=== PATIENT | male | born 1940 | race Caucasian/White ===

== ENCOUNTER 2018-02-22 09:23 | Inpatient (IN) | payer MEDICARE, MEDICAID ==
[~2018-02-22] VITALS: Ht 182.9 cm; Wt 67.6 kg
[~2018-02-22 09:23] MED LIST: ACET325T53 PO; AMLO5TAB7 PO; ASPI500T19 PO; ATOR20TA PO; BISA10SU8 RC; CHOL100044 PO; DICL100G16 TP; GABA-534 PO; HYDR-3026 PO; HYDR28.32 TP; HYDR2VIA3 IVP; LORA-259 PO; MAGN400O6 PO; METF-440 PO; NA P133E RC; OMEP20TA5 PO; ONDA4TAB8 PO; POLY17PO4 PO; SITA50TA PO; TAMS-12 PO
--- NOTE | 2018-02-22 09:25 | NUR ---
FLOR FROM SND WITH CC OF ALTERED MENTAL STATUS. PATIENT RECEIVED AWAKE AND ALERT X 3. NOT IN DISTRESS. SKIN IS WARM TO TOUCH, NOTED FEBRILE. 102.2 ORAL UPON CHECKING. PATIERNT IS SATING 9% ON ROOM AIR, PLACED PT ON O2 VIA NC. CONNECTED PT TO TELE MONITOR, PENDING MD WEI
--- NOTE | 2018-02-22 09:42 | NUR ---
URINE SAMPLE COLLECTED AND SENT TO LAB
[2018-02-22 09:52] LABS: APPEARANCE,URINE Clear (CLEAR); BILIRUBIN,URINE Negative (NEGATIVE); BLOOD, URINE Moderate Ery/uL (NEGATIVE); COLOR,URINE Yellow (YELLOW); KETONES,URINE Negative (NEGATIVE); LEUKOCYTE ESTERASE ,URINE Small (NEGATIVE); NITRITE, URINE Positive (NEGATIVE); PH,URINE 5.5 (5.0-8.0); PROTEIN,URINE Negative (NEGATIVE); UGLUCOSE Negative (NEGATIVE)
[2018-02-22 10:04] LABS: CALCIUM, SERUM 8.5 mg/dL (8.5-10.1); CARBON DIOXIDE 26 mmol/L (21-32); CHLORIDE 102 mmol/L (98-107); CREATININE 1.3 mg/dL (0.6-1.3); GLUCOSE 253 mg/dL (74-106); POTASSIUM 4.1 mmol/L (3.5-5.1); SODIUM SERUM 139 mmol/L (136-145); UREA NITROGEN, BLOOD 31 mg/dL (7-18)
--- NOTE | 2018-02-22 10:07 | NUR ---
PAGED DR. BHANDARI FOR ADMISSION.
[2018-02-22 10:08] LABS: BASOPHILS % (AUTO) 0.6 % (0.0-2.0); HEMATOCRIT 43 % (39-51); HEMOGLOBIN 14.2 g/dL (13.5-17.5); INR 1.05 (0.87-1.13); LYMPHOCYTES % (AUTO) 2.6 % (20.0-44.0); MEAN CORPUSCULAR HGB CONC 33 g/dl (31.0-36.0); MEAN CORPUSCULAR VOLUME 85 fL (80-96); MONOCYTES % (AUTO) 4.8 % (2.0-12.0); PLATELET COUNT (AUTO) 167 /CMM (150-450); RDW COEFFICIENT OF VARIATION 15.6 (11.5-15.0); RED BLOOD CELL COUNT(AUTO) 5.08 MIL/uL (4.5-6.0)
[2018-02-22 10:09] LABS: BASOPHILS # (AUTO) 0.1 /CMM (0.0-0.2); LYMPHOCYTES # (AUTO) 0.5 /CMM (0.8-4.8); MONOCYTES # (AUTO) 0.9 /CMM (0.1-1.30); NEUTROPHILS # (AUTO) 17.5 /CMM (1.8-8.9); TROPONIN I < 0.017 ng/mL (0.00-0.056)
[2018-02-22 10:10] LABS: ALANINE AMINOTRANSFERASE 15 U/L (12-78); ALBUMIN 3.2 g/dL (3.4-5.0); ALKALINE PHOSPHATASE 82 U/L (46-116); ASPARTATE AMINOTRANSFERASE 20 U/L (15-37); BILIRUBIN,DIRECT 0.1 mg/dL (0.0-0.2); BILIRUBIN,TOTAL 0.5 mg/dL (0.2-1.0); TOTAL PROTEIN, SERUM 7.3 g/dL (6.4-8.2)
[2018-02-22 10:16] LABS: BACTERIA,URINE 1+ /HPF (None Seen); SQUAMOUS EPITHELIAL CELL,UR Few /HPF (None Seen)
[2018-02-22] MEDS ORDERED: CEFTRIAXONE 1GM BAG (ER ONLY) 50 ML IV ONE (11:00)
--- NOTE | 2018-02-22 11:12 | NUR ---
REPORT GIVEN TO CONI RANDLE FOR SHINE
--- NOTE | 2018-02-22 11:15 | NUR ---
ROCEPHINE ORDER DUPLICATE
--- NOTE | 2018-02-22 11:24 | NUR ---
PATIENT TRANSPORTED TO TELE. S
[2018-02-22] MEDS ORDERED: POLY15DR40 EACHEYE (11:30)
[2018-02-22] MEDS ORDERED: TRAM50TA2 PO ×2 (11:30)
[2018-02-22] MEDS ORDERED: BACL10TA PO (11:30)
[2018-02-22] MEDS ORDERED: POLY17PO4 PO (11:30)
[2018-02-22] MEDS ORDERED: PANT40TA2 PO (11:30)
[2018-02-22] MEDS ORDERED: DULO60CA45 PO (11:30)
[2018-02-22] MEDS ORDERED: FINA5TAB3 PO (11:30)
[2018-02-22] MEDS ORDERED: METH10TA2 PO (11:30)
[2018-02-22] MEDS ORDERED: PRIM50TA27 PO (11:30)
[2018-02-22] MEDS ORDERED: LINA5TAB PO (11:30)
[2018-02-22] MEDS ORDERED: OLOP2.5D EACHEYE (11:30)
[2018-02-22] MEDS ORDERED: CEFTRIAXONE 1 G in IV D5W 50 ML IV ONE (11:30)
[2018-02-22] MEDS ORDERED: ASCO500T9 PO (11:30)
[2018-02-22] MEDS ORDERED: CALA177L16 TP (11:30)
[2018-02-22] MEDS ORDERED: CETI-102 PO (11:30)
[2018-02-22] MEDS ORDERED: HYDR25SU33 RC (11:34)
[2018-02-22] MEDS ORDERED: METF500T67 PO (11:34)
[2018-02-22 11:55] VITALS: BP 104/47
--- NOTE | 2018-02-22 12:05 | NUR ---
AVIATION OPERATIONS SPECIALIST NOTE RECEIVED PATINT FROM ER WITH DX AMS UNDER CARE DOCTOR ELISABET ,ALERT WITH CONFUSION ,PLACED ON TELEMONITOR SR , LT AC HL INTACT NO S\S INFECTION NOTED , HOSPITAL,ORIENTATION DONEVS TAKEN ON RA NO SOB NOTEBODY CHECK DONE , BED IN LOWEST AND LOCKED POSITION , CALL LIGHT WITHIN REACH , WILL MDONT TO MONITOR CLOSELY
[2018-02-22 13:54] VITALS: BP 104/47
--- NOTE | 2018-02-22 14:00 | NUR ---
PEOP[employer]OFT FINANCIALS CONSULTANT OTE CALLED TO DR BHANDARI STATED , TO CONT MEDS FROM SNF .OK TO START JOSE DIET
[2018-02-22] MEDS ORDERED: cetrizine 10 MG TABLET PO PRN (15:00)
[2018-02-22] MEDS ORDERED: POLYETHYLENE GLYCOL 3350 17 GM POWD.PACK PO PRN (15:00)
[2018-02-22] MEDS ORDERED: NA PHOS,M-B/NA PHOS,DI-BA 1 EA ENEMA RC PRN (15:00)
[2018-02-22] MEDS ORDERED: CALAMINE 118 ML BOTTLE TP PRN (15:00)
[2018-02-22] MEDS ORDERED: BISACODYL SUPP (10 MG) 10 MG/SUPP.RECT SUPP.RECT RC PRN (15:00)
[2018-02-22] MEDS ORDERED: TRAMADOL HCL 50 MG TABLET PO PRN (15:00)
[2018-02-22] MEDS: ACETAMINOPHEN 325 MG TABLET PO PRN ×2 (15:10→21:26)
[2018-02-22] MEDS ORDERED: hydrOXYzine PAMOATE 25 MG CAPSULE PO PRN (15:30)
--- NOTE | 2018-02-22 15:58 | NUR ---
EXCELSIOR CUTTER NOTE SPOKE WITH DR BHANDARI AWARE THAT T 102.8 .OK TO START IVF ORDER CARRIED OUT
[2018-02-22] MEDS ORDERED: DEXTROSE 50%-WATER 50 ML DISP.SYRIN IV PRN (16:00)
[2018-02-22] MEDS: BACLOFEN (10 MG) 10 MG TABLET PO SCH (16:12)
[2018-02-22] MEDS: GABAPENTIN 400 MG CAPSULE PO SCH (16:12)
[2018-02-22] MEDS: OLOPATADINE HCL 0.1% OPHTH BOTTLE EACHEYE SCH (16:12)
[2018-02-22 16:17] VITALS: BP 101/48
[2018-02-22] MEDS: IV NS 0.9% 1,000 ML IV PRN (16:26)
[2018-02-22] MEDS: BLOOD SUGAR DIAGNOSTIC 1 EACH STRIP IN SCH ×2 (18:26→21:48)
[2018-02-22] MEDS: INSULIN ASPART/LISPRO 100 UNIT/ML CARTRIDGE SQ PRN (18:26)
--- NOTE | 2018-02-22 18:28 | NUR ---
PSYCHIC READER NOTE PER DR ELISABET METCALF TO PLACE COOLING BALKET , T NOW 101.9 ,WILL CONT TO MONITOR CLOSELY, REFUSED DINNER, ENCOURAGED X2 ,STILL REFUSED, WILL F\U
--- NOTE | 2018-02-22 19:30 | NUR ---
RN OPENING NOTES: RECEIVED PATIENT ON BED AWAKE ALERT TO NAME, CONFUSED. ON ROOM AIR NOT IN APPARENT DISTRESS. SR ON THE MONITOR. IV ACCESS INTACT ON LEFT AC IVF INFUSING ORDERED, SAFETY AND ASPIRATION PRECAUTIONS OBSERVED AT ALL TIMES. ON COOLING BLANKET TO MONITOR TEMP; RENDERED COOLING MEASURES; INFECTION PREVENTATIVE MEASURES ENSURED. CONTINUOUSLY MONITORED. BED ALARM SET.
[2018-02-22 20:00] VITALS: BP 119/59
[2018-02-22] MEDS: PRIMIDONE 50 MG TABLET PO SCH (21:26)
[2018-02-22] MEDS: POLYETHYLENE GLYCOL 3350 17 GM POWD.PACK PO SCH (21:27)
[2018-02-22] MEDS: HYDROCORTISONE ACETATE 25 MG/SUPP.RECT SUPP.RECT RC SCH (22:00)
[2018-02-23] VITALS: BP 133/50
--- NOTE | 2018-02-23 00:30 | NUR ---
RN NOTES: PATIENT;S TEMP NOW DOWN TO 98.9. TO CONTINUE TO MONITOR. TURNED OFF COOLING BALNKET, PATIENT CLAIMS HE IS " FREEZING."
[2018-02-23 04:00] VITALS: BP 125/47
[2018-02-23] MEDS: ACETAMINOPHEN 325 MG TABLET PO PRN ×3 (04:26→21:45)
[2018-02-23] MEDS: IV NS 0.9% 1,000 ML IV PRN ×2 (05:49→18:24)
--- NOTE | 2018-02-23 06:54 | NUR ---
RN CLOSING NOTES: SKIN CARE RENDERED. NOTED SPIKE OF TEMP AGAIN. WAS PLACED BACK ON COOLING BLANKET AND CONTINUED COOLING MASURES. TYLENOL APPROPRIATE. SAFETY MEASURES ENSURED. TO MONITOR FOR FEVERS. PATIENT'S TEMP NOW DOWN TO 99.8. PATIENT COMPLAINED HE IS COLD. SAFETY MEASURES ENSURED. PLACED CONDOM CATH TO COLLECT URINE. IVF ORDERED. ACCUCHECK NOTED. CONTINUOUSLY MONITORED.TO ENDORSE TO AM SHIFT RN.
--- NOTE | 2018-02-23 07:10 | NUR ---
TELE/RN INITIAL NOTES RECEIVED PT IN BED, ALERT AND VERBALLY RESPONSIVE. SR ON TELEMONITOR. NO C/O PAIN AT THIS TIME. ON COOLING BLANKET, AFEBRILE AT THIS TIME. CONDOM CATH IN PLACED. WITH ONGOING IVF NS@75ML/HR INFUSING WELL ON LAC G18. HOB ELEVATED. SAFETY MEASURES AND ASPIRATION PRECAUTION OBSERVED AT ALL TIMES. CALL LIGHT WITHIN REACH. PER PM RN ENDORSEMENT, PT HAS BEEN REFUSING MEALS SINCE YESTERDAY AND PT REFUSED ACCUCHECK FOR 729, WILL OFFER AGAIN LATER. WILL CONT TO MONITOR
--- NOTE | 2018-02-23 07:29 | NUR ---
REFUSED ACCUCHECK AT THIS TIME; TO RE OFFER; MRSA SENT PER PROTOCOL
[2018-02-23] MEDS: BLOOD SUGAR DIAGNOSTIC 1 EACH STRIP IN SCH ×4 (07:30→21:40)
--- NOTE | 2018-02-23 07:30 | NUR ---
RN NOTES OFFERED ACCUCHECK TO PT, PT STILL STRONGLY REFUSED, PT VERBALIZED, "THEY HAVEN'T CHECKED MY BLOOD SUGAR FOR 1 YEAR SO WHY DO IT NOW." EXPLAINED RISKS AND BENEFITS. STILL PT STRONGLY REFUSED OFFERED BREAKFAST, PT REFUSED. WILL RE-OFFER AGAIN LATER
[2018-02-23] MEDS: PANTOPRAZOLE 40 MG TABLET.DR PO SCH (07:52)
[2018-02-23 08:00] VITALS: BP 141/59
[2018-02-23] MEDS: CHOLECALCIFEROL 1,000 UNIT TABLET (VIT D3) PO SCH (08:50)
[2018-02-23] MEDS: METFORMIN 500 MG TABLET PO SCH (08:50)
[2018-02-23] MEDS: FINASTERIDE (5 MG) 5 MG TABLET PO SCH (08:50)
[2018-02-23] MEDS: LINAGLIPTIN 5 MG TABLET PO SCH (08:50)
[2018-02-23] MEDS: BACLOFEN (10 MG) 10 MG TABLET PO SCH ×3 (08:51→16:39)
[2018-02-23] MEDS: ASCORBIC ACID 500 MG TABLET PO SCH (08:51)
[2018-02-23] MEDS: GABAPENTIN 400 MG CAPSULE PO SCH ×3 (08:51→16:38)
[2018-02-23] MEDS: METHADONE HCL 10 MG TABLET PO SCH (08:51)
[2018-02-23] MEDS: DULOXETINE HCL 30 MG CAPSULE.DR PO SCH (08:51)
[2018-02-23] MEDS: TRAMADOL HCL 50 MG TABLET PO SCH (08:51)
[2018-02-23] MEDS: OLOPATADINE HCL 0.1% OPHTH BOTTLE EACHEYE SCH ×2 (08:54→16:39)
--- NOTE | 2018-02-23 09:00 | NUR ---
RN NOTES OFFERED BREAKFAST, PT REFUSED. PT REQUESTED FOR 2 CRANBERRY JUICE AND OFFERED UNSWEETENED APPLE SAUCE.
--- NOTE | 2018-02-23 10:45 | NUR ---
RN NOTES CALLED PHARMACY FOR ROCEPHIN IV, PER PHARMACIST, WILL DELIVER
[2018-02-23] MEDS ORDERED: Z GUARD REMEDY 2 OZ OINT TP PRN (11:30)
[2018-02-23 12:00] VITALS: BP 136/48
[2018-02-23] MEDS: SILVER SULFADIAZINE CREAM 25 GM TUBE TP SCH (12:03)
[2018-02-23] MEDS: CEFTRIAXONE 1 G in IV D5W 50 ML IV SCH (12:03)
[2018-02-23 16:00] VITALS: BP 141/56
--- NOTE | 2018-02-23 17:30 | NUR ---
RN NOTES SEEN AND EXAMINED BY DR BHANDARI. NOTIFIED MD THAT PT HAS BEEN REFUSING MEALS. NOTED PT BLADDER DISTENTION. NO URINE OUTPUT ON CONDOM CATH. MD ORDER: D/C CONDOM, CATH. BLADDER SCANN Q6HR, MAY DO IN AND OUT CATH IF >300 MLS RETENTION
[2018-02-23] MEDS: ASPIRIN 325 MG TABLET PO SCH (17:35)
--- NOTE | 2018-02-23 18:00 | NUR ---
RN NOTES BLADDER SCAN DONE; [id number] IN AND OUT CATH DONE WITH 600ML OUTPUT
--- NOTE | 2018-02-23 19:10 | NUR ---
REQUISITION APPROVER NOTES RECEIVED PT IN BED, RESTING COMFORTABLY, A/ 0 X 1, VERBALLY RESPONSIVE. NO DISTRESS, NO SOB NOTED AT THIS TIME. SR ON TELEMONITOR. NO C/O PAIN AT THIS TIME. ON COOLING BLANKET IN PLACE, TEMP : 99.7 AT THIS TIME. WITH ONGOING IVF NS@75ML/HR INFUSING WELL ON LAC G18. NO INFILTRATION NOTED. HOB ELEVATED. SAFETY MEASURES AND ASPIRATION PRECAUTION OBSERVED AT ALL TIMES. NO S/S OF HYPO/ HYPERGLYCEMIA NOTED. CALL LIGHT WITHIN REACH. WILL CONT TO MONITOR.
--- NOTE | 2018-02-23 19:11 | NUR ---
RN NOTES PT IN STABLE CONDITION, NO ACUTE CHANGES THROUGHOUT SHIFT. SAFETY MEASURES AND ASPIRATION PRECAUTION OBSERVED AT ALL TIMES. ALL NEEDS ANTICIPATED. ENDORSED TO PM SHIFT RN FOR SHINE
--- NOTE | 2018-02-23 19:13 | NUR ---
PT ON SR WITH BBB , HR : 71 ON TELE MONITOR.
[2018-02-23 19:53] LABS: ALANINE AMINOTRANSFERASE 29 U/L (12-78); ALKALINE PHOSPHATASE 80 U/L (46-116); ASPARTATE AMINOTRANSFERASE 57 U/L (15-37); BILIRUBIN,TOTAL 0.7 mg/dL (0.2-1.0); CALCIUM, SERUM 8.3 mg/dL (8.5-10.1); CARBON DIOXIDE 22 mmol/L (21-32); CHLORIDE 105 mmol/L (98-107); CREATININE 1.1 mg/dL (0.6-1.3); GLUCOSE 135 mg/dL (74-106); POTASSIUM 4.2 mmol/L (3.5-5.1); SODIUM SERUM 141 mmol/L (136-145); TOTAL PROTEIN, SERUM 7.5 g/dL (6.4-8.2); UREA NITROGEN, BLOOD 27 mg/dL (7-18)
[2018-02-23 20:00] VITALS: BP 127/55
[2018-02-23] MEDS: PRIMIDONE 50 MG TABLET PO SCH (21:39)
[2018-02-23] MEDS: HYDROCORTISONE ACETATE 25 MG/SUPP.RECT SUPP.RECT RC SCH (21:39)
[2018-02-23] MEDS: ATORVASTATIN 10 MG TABLET PO SCH (21:40)
[2018-02-23] MEDS: POLYETHYLENE GLYCOL 3350 17 GM POWD.PACK PO SCH (21:40)
[2018-02-23] MEDS: INSULIN ASPART/LISPRO 100 UNIT/ML CARTRIDGE SQ PRN (22:01)
[2018-02-23] MEDS ORDERED: INSULIN LISPRO/ASPART 100 UNIT/ML CARTRIDGE SQ ONE (22:59)
[2018-02-24] VITALS: BP 96/45
--- NOTE | 2018-02-24 01:15 | NUR ---
BLADDER SCAN DONE : 27 CC AT THIS TIME, PT WITH NO S/S OF PAIN OR DISCOMFORT AT THIS TIME, PT IS ASLEEP , APPEARS COMFORTABLE. WILL CONT TO MONITOR.
[2018-02-24 04:00] VITALS: BP 91/42
[2018-02-24 06:04] LABS: EOSINOPHILS % (AUTO) 0.1 % (0.0-6.0); HEMATOCRIT 39 % (39-51); HEMOGLOBIN 12.6 g/dL (13.5-17.5); LYMPHOCYTES # (AUTO) 0.3 /CMM (0.8-4.8); MEAN CORPUSCULAR HGB CONC 32 g/dl (31.0-36.0); MEAN CORPUSCULAR VOLUME 86 fL (80-96); MONOCYTES # (AUTO) 0.6 /CMM (0.1-1.30); MONOCYTES % (AUTO) 8.9 % (2.0-12.0); NEUTROPHILS # (AUTO) 5.4 /CMM (1.8-8.9); PLATELET COUNT (AUTO) 127 /CMM (150-450); RDW COEFFICIENT OF VARIATION 15.9 (11.5-15.0); RED BLOOD CELL COUNT(AUTO) 4.51 MIL/uL (4.5-6.0); WHITE BLOOD COUNT (AUTO) 6.3 K/uL (4.3-11.0)
--- NOTE | 2018-02-24 06:10 | NUR ---
bladder scan done: 100 cc at this time, molded goods inspector trimmer ricarda at bedside, doing am care to pt . pt denies pain or discomfort at this time.
--- NOTE | 2018-02-24 06:51 | NUR ---
ROCK DUSTER NOTES PT IN BED, AWAKE, A/ 0 X 2, VERBALLY RESPONSIVE. NO DISTRESS, NO SOB NOTED AT THIS TIME. SR 64ON TELE MONITOR. NO C/O PAIN AT THIS TIME. PT IS AFEBRILE WITH ONGOING IVF NS@75ML/HR INFUSING WELL ON LAC G18. NO INFILTRATION NOTED. HOB ELEVATED. SAFETY MEASURES AND ASPIRATION PRECAUTION OBSERVED AT ALL TIMES. NO S/S OF HYPO/ HYPERGLYCEMIA NOTED. CALL LIGHT WITHIN REACH. WILL ENDORSE TO NEXT SHIFT FOR SHINE
--- NOTE | 2018-02-24 07:10 | NUR ---
TELE/RN INITIAL NOTES RECEIVED PT IN BED, A/OX2. SR WITH BBB ON TELEMONITOR. TOLERATING ROOM AIR WELL, NO SOB NOTED. DENIES PAIN. AFEBRILE AT THIS TIME. ON COOLING BLANKET. WITH ONGOING IVF NS AT 75 ML/HR INFUSING WELL ON LAC G18. HOB ELEVATED. SAFETY MEASURES AND ASPIRATION PRECAUTION IN PLACED. CALL LIGHT WITHIN REACH. WILL CONT TO MONITOR
[2018-02-24] MEDS: BLOOD SUGAR DIAGNOSTIC 1 EACH STRIP IN SCH ×4 (07:30→21:42)
[2018-02-24] MEDS: PANTOPRAZOLE 40 MG TABLET.DR PO SCH (07:42)
[2018-02-24] MEDS: IV NS 0.9% 1,000 ML IV PRN ×2 (07:56→21:43)
[2018-02-24 08:00] VITALS: BP 105/46
[2018-02-24] MEDS: GABAPENTIN 400 MG CAPSULE PO SCH ×3 (08:20→16:07)
[2018-02-24] MEDS: DULOXETINE HCL 30 MG CAPSULE.DR PO SCH (08:21)
[2018-02-24] MEDS: BACLOFEN (10 MG) 10 MG TABLET PO SCH ×3 (08:21→16:06)
[2018-02-24] MEDS: TRAMADOL HCL 50 MG TABLET PO SCH (08:21)
[2018-02-24] MEDS: FINASTERIDE (5 MG) 5 MG TABLET PO SCH (08:21)
[2018-02-24] MEDS: METHADONE HCL 10 MG TABLET PO SCH (08:21)
[2018-02-24] MEDS: LINAGLIPTIN 5 MG TABLET PO SCH (08:21)
[2018-02-24] MEDS: CHOLECALCIFEROL 1,000 UNIT TABLET (VIT D3) PO SCH (08:21)
[2018-02-24] MEDS: ASCORBIC ACID 500 MG TABLET PO SCH (08:21)
[2018-02-24] MEDS: METFORMIN 500 MG TABLET PO SCH (08:21)
[2018-02-24] MEDS: OLOPATADINE HCL 0.1% OPHTH BOTTLE EACHEYE SCH ×2 (08:22→16:06)
[2018-02-24] MEDS: SILVER SULFADIAZINE CREAM 25 GM TUBE TP SCH (08:22)
[2018-02-24] MEDS: CEFTRIAXONE 1 G in IV D5W 50 ML IV SCH (11:54)
[2018-02-24 12:00] VITALS: BP 100/46
--- NOTE | 2018-02-24 12:00 | NUR ---
RN NOTES BLADDER SCAN ISYL=556 MLS; NOTED WET DIAPER
--- NOTE | 2018-02-24 13:30 | NUR ---
RN NOTES PT WAS SEEN AND EXAMINED BY DR BHANDARI. MD NOTIFIED RE: PT'S CONT REFUSING OF MEALS, MADE AWARE THAT PT ONLY TAKES JUICE AND APPLE SAUCE. RD FOLLOWING, RECOMMENDED ADDITIONAL MILKSHAKE ON TRAYS. MD ORDER TO D/C TYLENOL PO PRN FOR FEVER, PER MD OK TO GIVE TYLENOL FOR MILD PAIN ONLY
[2018-02-24 16:00] VITALS: BP 102/43
[2018-02-24] MEDS: ASPIRIN 325 MG TABLET PO SCH (17:30)
--- NOTE | 2018-02-24 18:00 | NUR ---
RN NOTES BLADDER SCAN= 219 MLS
--- NOTE | 2018-02-24 19:08 | NUR ---
RN NOTES PT IN STABLE CONDITION. NO ACUTE CHANGES THROUGHOUT SHIFT. SAFETY MEASURES OBSERVED AT ALL TIMES. ALL NEEDS ANTICIPATED
--- NOTE | 2018-02-24 19:40 | NUR ---
RN INITIAL NOTES: RECEIVED REPORT FROM KASSIDY NEWBERRY. PT IN BED, AWAKE, A/O X1-2, CONFUSED, ON RA, RESPIRATION EVEN AND UNLABORED. APPEARS CALM AND COMFORTABLE. NO FACIAL GRIMACE NOTED. IV ACCESS ON LEFT AC G 18 PATENT AND FLUSHING WELL, INFUSING WITH NS AT 75ML/HR. PER DAY RN REPORT, PT REFUSING TO EAT, MD AWARE ABOUT IT. LAST BLADDER SCAN PERFORMED BY DAY RN WAS AT 0600PM (1800). NEXT BLADDER SCAN WILL BE AT 0000MN. BLE OFFLOADED. SAFETY PRECAUTIONS FOR FALL INITIATED, CALL LIGHT IN REACH. WILL CONTINUE MONITORING PT.
[2018-02-24 20:00] VITALS: BP 105/46
[2018-02-24] MEDS: ATORVASTATIN 10 MG TABLET PO SCH (21:43)
[2018-02-24] MEDS: POLYETHYLENE GLYCOL 3350 17 GM POWD.PACK PO SCH (21:43)
[2018-02-24] MEDS: PRIMIDONE 50 MG TABLET PO SCH (21:43)
[2018-02-24] MEDS: HYDROCORTISONE ACETATE 25 MG/SUPP.RECT SUPP.RECT RC SCH (21:43)
[2018-02-24] MEDS: INSULIN ASPART/LISPRO 100 UNIT/ML CARTRIDGE SQ PRN (21:59)
--- NOTE | 2018-02-24 21:59 | NUR ---
BS 165: BS 165, UPON SCANNING THE MEDICATION IT SHOWS THAT MEDICATION IS NOT ON PT'S PROFILE, CHECKED AND VERIFIED WITH COVER MAKING MACHINE OPERATOREDUARD YANG, 5MEDICATION RIGHTS VERIFIED. 3UNITS OF INSULIN HUMALOG/LISPRO ADMINISTERED AT THIS TIME PER SLIDING SCALE. WILL MONITOR PT FOR ANY S/S OF HYPOGLYCEMIA.
--- NOTE | 2018-02-24 22:10 | NUR ---
RN NOTES: ASPIRATION PRECAUTION INITIATED, SUCTION SET UP SECURED, PLACED PT ON HIGH EDDY'S POSITION, PT TOOK ALL MEDICATION ORALLY, CRUSHED MEDS WITH PUDDING, ALSO MIRALAX DRINK BY PT, WITH THICKENER. PUDDING PROVIDED TO PT AND MIRALAX MIXED WITH JUICED, ALL CONSUMED 100%.
[2018-02-25] VITALS (8 sets, daily range): BP systolic 100–141; BP diastolic 45–79
--- NOTE | 2018-02-25 | NUR ---
RN NOTES: PERFORMED BLADDER SCAN, OBTAINED RESULT OF 500ML, UNABLE TO PRINT ITS OUT OF PAPER, STRAIGHT CATHETER PERFORMED USING STERILE TECHNIQUE, PT TOLERATED PROCEDURE, OBTAINED 600ML OF XIOMY COLORED URINE.
--- NOTE | 2018-02-25 02:30 | NUR ---
RN NOTES: PERFORMED BLOOD SUGAR CHECKED 3HRS AFTER ADMINISTERING HS COVERAGE, RESULT OBTAINED IS 138. PT ASLEEP, AROUSES TO TACTILE STIMULI.
--- NOTE | 2018-02-25 04:30 | NUR ---
RN NOTES: PT NOTED TO HAVE FEVER, 100.5, COOLING MEASURES PROVIDED, COOLING BLANKET TURNED ON, NO TYLENOL PER DR BHANDARI
--- NOTE | 2018-02-25 05:13 | NUR ---
AM CARE/WOUND CARE: ASSISTED MATERIAL CONTROL MANAGER IN PROVIDING BED BATH TO PT, COMPLETE LINEN CHANGED PROVIDED TOO. WOUND CARE DONE ORDERED, ORAL CARE PROVIDED.
--- NOTE | 2018-02-25 06:03 | NUR ---
BLADDER SCAN Q6H: PERFORMED BLADDER SCAN AT THIS TIME, OBTAINED GREATER THAN 300ML OF URINE IN THE BLADDER, UNABLE TO PRINT MACHINE/SCANNER OUT OF PRINTER PAPER. PERFORMED STRAIGHT CATHETERIZATION/IN AND OUT, USING STERILE TECHNIQUE, OBTAINED 300ML OF XIOMY COLORED URINE.
--- NOTE | 2018-02-25 06:35 | NUR ---
RN CLOSING NOTES: PT IN BED, AWAKE, REMAINS A/O X2, LAST BLADDER SCAN AT 0600AM SHOWS >300ML, STRAIGHT CATHETERIZATION PERFORMED AND OBTAINED 300ML OF XIOMY COLORED URINE. IV ACCESS REMAINS PATENT AND FLUSHING WELL, INFUSING WITH NS AT 75ML/HR. NO S/S OF INFILTRATION NOTED. BLE KEPT OFFLOADED. PT REMAINS AFEBRILE. SINUS RHYTHM WITH BBB HR 74, ON COOLING BLANKET LATEST TEMP 99.5. VS REMAINS STABLE, NEEDS ATTENDED. SAFETY PRECAUTIONS FOR FALL REMAINS ENGAGED, CALL LIGHT IN REACH, WILL ENDORSE TO DAY RN FOR CONTINUITY OF CARE.
[2018-02-25] MEDS: BLOOD SUGAR DIAGNOSTIC 1 EACH STRIP IN SCH ×4 (08:04→21:30)
[2018-02-25] MEDS: PANTOPRAZOLE 40 MG TABLET.DR PO SCH (08:34)
[2018-02-25] MEDS: LINAGLIPTIN 5 MG TABLET PO SCH (08:39)
[2018-02-25] MEDS: FINASTERIDE (5 MG) 5 MG TABLET PO SCH (08:39)
[2018-02-25] MEDS: BACLOFEN (10 MG) 10 MG TABLET PO SCH ×3 (08:39→17:26)
[2018-02-25] MEDS: METFORMIN 500 MG TABLET PO SCH (08:39)
[2018-02-25] MEDS: ASCORBIC ACID 500 MG TABLET PO SCH (08:40)
[2018-02-25] MEDS: DULOXETINE HCL 30 MG CAPSULE.DR PO SCH (08:40)
[2018-02-25] MEDS: GABAPENTIN 400 MG CAPSULE PO SCH ×3 (08:40→17:26)
[2018-02-25] MEDS: CHOLECALCIFEROL 1,000 UNIT TABLET (VIT D3) PO SCH (08:40)
[2018-02-25] MEDS: SILVER SULFADIAZINE CREAM 25 GM TUBE TP SCH (08:54)
[2018-02-25] MEDS: TRAMADOL HCL 50 MG TABLET PO SCH (08:54)
[2018-02-25] MEDS: POLYVINYL ALCOHOL 15 ML BOTTLE EACHEYE PRN (08:54)
[2018-02-25] MEDS: OLOPATADINE HCL 0.1% OPHTH BOTTLE EACHEYE SCH ×2 (08:55→17:30)
--- NOTE | 2018-02-25 09:04 | NUR ---
Patient refused eye drops and by mouth medications. While applying silvadene cream to left lower extremity patient says "you are a sadist and have nothing to help [place] pain [place]. You must get a doctor's consent to come back. Bring a doctor with you next time."
[2018-02-25] MEDS: CEFTRIAXONE 1 G in IV D5W 50 ML IV SCH (11:25)
--- NOTE | 2018-02-25 13:03 | NUR ---
Attempt to assess blood glucose. Patient swinging arms at automotive service writer and says "I don't want anything. Go away." Patient intravenous antibiotic up at this time. Will attempt medication pass by mouth antibiotic and baclofen.
--- NOTE | 2018-02-25 14:07 | NUR ---
Four hundred output during straight catheter at this time. Reposition and bed bath with JONE Ortiz.
[2018-02-25 17:20] LABS: CARBON DIOXIDE 28 mmol/L (21-32); CHLORIDE 108 mmol/L (98-107); CREATININE 0.7 mg/dL (0.6-1.3); GLUCOSE 107 mg/dL (74-106); POTASSIUM 3.1 mmol/L (3.5-5.1); SODIUM SERUM 143 mmol/L (136-145); UREA NITROGEN, BLOOD 23 mg/dL (7-18)
[2018-02-25] MEDS: ASPIRIN 325 MG TABLET PO SCH (17:26)
[2018-02-25] MEDS ORDERED: FEE PK DOSING 1 MIN EA MC ONE (17:36)
[2018-02-25] MEDS: VANCOMYCIN 1 GM in IV D5W 250 ML IV SCH (17:59)
--- NOTE | 2018-02-25 18:42 | NUR ---
Bladder scan 278 ml in urinary bladder.
[2018-02-25] MEDS: IV NS 0.9% 1,000 ML IV PRN (18:43)
--- NOTE | 2018-02-25 19:23 | NUR ---
Handoff to night nurse, CONI Carreon. Palomo Jarvis RN
[2018-02-25] MEDS ORDERED: POTASSIUM CHLORIDE 10 MEQ TABLET.SA PO ONE (20:00)
--- NOTE | 2018-02-25 20:00 | NUR ---
Received patient awake alert oriented x 2.Confused at times.Fall precaution maintained with call light at BS.Bed low and bed alarm on.VS stable.NSR per monitor.Denies pain. Respiration even and unlabored.Tolerating RA.IVF infusing.Turned and repositioned.
[2018-02-25] MEDS: POTASSIUM CHLORIDE 20 MEQ POWDER PACKET PO SCH (20:54)
[2018-02-25] MEDS: HYDROCORTISONE ACETATE 25 MG/SUPP.RECT SUPP.RECT RC SCH (21:32)
[2018-02-25] MEDS: PRIMIDONE 50 MG TABLET PO SCH (21:32)
[2018-02-25] MEDS: ATORVASTATIN 10 MG TABLET PO SCH (21:32)
[2018-02-25] MEDS: POLYETHYLENE GLYCOL 3350 17 GM POWD.PACK PO SCH (21:32)
[2018-02-26] VITALS: BP 106/37
--- NOTE | 2018-02-26 | NUR ---
FITNESS COORDINATOR NOTE BLADDER SCAN DONE 175 CC OF URINE
[2018-02-26 04:00] VITALS: BP 97/43
[2018-02-26] MEDS: CEFAZOLIN 1 GM in IV D5W 50 ML IV SCH ×3 (05:02→21:20)
[2018-02-26] MEDS: VANCOMYCIN 1 GM in IV D5W 250 ML IV SCH ×2 (06:00→18:28)
--- NOTE | 2018-02-26 06:00 | NUR ---
Patient FSBS done no coverage given per parameters.Patient compliant with medications with explanations.Bladder scan done.Incontinent.Perineal and bed bath rendered.Turned and repositioned.
[2018-02-26] MEDS: BLOOD SUGAR DIAGNOSTIC 1 EACH STRIP IN SCH ×4 (06:07→21:21)
[2018-02-26 06:42] LABS: BASOPHILS % (AUTO) 0.6 % (0.0-2.0); EOSINOPHILS % (AUTO) 2.6 % (0.0-6.0); HEMATOCRIT 32 % (39-51); HEMOGLOBIN 10.7 g/dL (13.5-17.5); LYMPHOCYTES # (AUTO) 0.9 /CMM (0.8-4.8); LYMPHOCYTES % (AUTO) 10.1 % (20.0-44.0); MEAN CORPUSCULAR HGB CONC 33 g/dl (31.0-36.0); MEAN CORPUSCULAR VOLUME 86 fL (80-96); MONOCYTES # (AUTO) 0.9 /CMM (0.1-1.30); MONOCYTES % (AUTO) 10.3 % (2.0-12.0); NEUTROPHILS # (AUTO) 6.5 /CMM (1.8-8.9); NEUTROPHILS % (AUTO) 76.4 % (43.0-81.0); PLATELET COUNT (AUTO) 134 /CMM (150-450); RDW COEFFICIENT OF VARIATION 16.3 (11.5-15.0); RED BLOOD CELL COUNT(AUTO) 3.76 MIL/uL (4.5-6.0); WHITE BLOOD COUNT (AUTO) 8.5 K/uL (4.3-11.0)
--- NOTE | 2018-02-26 07:00 | NUR ---
ENTERPRISE RESOURCE PLANNER/OPENING NOTES RECEIVED PT. IN BED A&OX1-2. PT.'S TELE MONITOR IS READING SINUS RHYTHM 62 BPM WITH INVERTED T WAVES. PT. IS BREATHING UNLABORED ON ROOM AIR. NO S/S OF ACUTE DISTRESS. PT. HAS LEFT LOWER EXTREMITY, AND ABOVE THE KNEE REDNESS WITH EDEMA. IV FLUIDS RUNNING AT 75 ML/HR. BED IS IN LOWEST, AND LOCKED POSITION. 2 SIDE RAILS UP AND CALL LIGHT IS WITHIN REACH. ALL NEEDS MET. WILL CONTINUE TO ASSESS AND MONITOR.
[2018-02-26 07:01] LABS: ALANINE AMINOTRANSFERASE 28 U/L (12-78); ALKALINE PHOSPHATASE 103 U/L (46-116); ASPARTATE AMINOTRANSFERASE 44 U/L (15-37); BILIRUBIN,TOTAL 0.9 mg/dL (0.2-1.0); CALCIUM, SERUM 7.8 mg/dL (8.5-10.1); CARBON DIOXIDE 26 mmol/L (21-32); CHLORIDE 109 mmol/L (98-107); CREATININE 0.7 mg/dL (0.6-1.3); GLUCOSE 103 mg/dL (74-106); POTASSIUM 3.2 mmol/L (3.5-5.1); SODIUM SERUM 141 mmol/L (136-145); TOTAL PROTEIN, SERUM 5.6 g/dL (6.4-8.2); UREA NITROGEN, BLOOD 18 mg/dL (7-18)
[2018-02-26] MEDS: PANTOPRAZOLE 40 MG TABLET.DR PO SCH (07:30)
[2018-02-26 08:00] VITALS: BP 117/59
--- NOTE | 2018-02-26 08:00 | NUR ---
Pantoprazol was not given due to medication cannot be crushed for pt. to intake with pudding. Pt. needs to have his medications crushed. Will follow up with MD to change order.
[2018-02-26] MEDS: POLYVINYL ALCOHOL 15 ML BOTTLE EACHEYE PRN (08:06)
[2018-02-26] MEDS: OLOPATADINE HCL 0.1% OPHTH BOTTLE EACHEYE SCH ×2 (08:07→17:17)
[2018-02-26] MEDS: IV NS 0.9% 1,000 ML IV PRN (08:11)
[2018-02-26] MEDS ORDERED: POTASSIUM CHLORIDE 20 MEQ TAB.PRT.SR PO SCH (09:00)
[2018-02-26] MEDS: POTASSIUM CHLORIDE 20 MEQ POWDER PACKET PO SCH (09:50)
[2018-02-26] MEDS: DULOXETINE HCL 30 MG CAPSULE.DR PO SCH (09:57)
[2018-02-26] MEDS: GABAPENTIN 400 MG CAPSULE PO SCH ×3 (10:07→17:16)
[2018-02-26] MEDS: BACLOFEN (10 MG) 10 MG TABLET PO SCH ×3 (10:07→17:16)
[2018-02-26] MEDS: CHOLECALCIFEROL 1,000 UNIT TABLET (VIT D3) PO SCH (10:07)
[2018-02-26] MEDS: ASCORBIC ACID 500 MG TABLET PO SCH (10:07)
[2018-02-26] MEDS: TRAMADOL HCL 50 MG TABLET PO SCH (10:08)
[2018-02-26] MEDS: FINASTERIDE (5 MG) 5 MG TABLET PO SCH (10:09)
[2018-02-26] MEDS: LINAGLIPTIN 5 MG TABLET PO SCH (10:09)
[2018-02-26] MEDS: SILVER SULFADIAZINE CREAM 25 GM TUBE TP SCH (10:10)
[2018-02-26] MEDS: METFORMIN 500 MG TABLET PO SCH (10:10)
--- NOTE | 2018-02-26 10:46 | NUR ---
WOUND CARE CONSULT WOUND CARE RECEIVED CONSULT FOR MULTIPLE WOUNDS. WOUND CARE DEFERRED CONSULT AND ALL TREATMENT PLANS TO SURGICAL TEAM WHO ARE CURRENTLY FOLLOWING. PATIENT WITH ALTON AT 10, ALL PRESSURE ULCER PREVENTION MEASURES ARE NOTED TO BE IN PLACE. WILL SEE PRN.
[2018-02-26 12:00] VITALS: BP 133/54
--- NOTE | 2018-02-26 14:00 | NUR ---
BLADDER SCAN PERFORMED, PT. HAD 454 CC OF URINE ON BLADDER SCAN. IN AND OUT STRAIGHT CATHETERIZATION WAS PERFORMED, AND 400 CC OF CLEAR, YELLOW AND PINK TINGED URINE WAS REMOVED.
[2018-02-26 16:00] VITALS: BP 112/50
[2018-02-26] MEDS: ASPIRIN 325 MG TABLET PO SCH (18:00)
--- NOTE | 2018-02-26 18:50 | NUR ---
BLADDER SCAN PERFORMED, AND SHOWED PT. HAD 217 CC OF URINE.
--- NOTE | 2018-02-26 19:10 | NUR ---
BRAND ADVOCATE NOTE RECEIVED PATIENT AOX1-2, CONFUSED, ON TELE SR, NO S/SX OF CARDIAC OR RESPIRATORY, RFA #22G WITH NS AT 75 ML/HR, PATENT FLUSHING WELL, NO PAIN NOTED, SAFETY MAINTAINED AT ALL TIMES, CALL LIGHT WITHIN REACH, BED IN LOW LOCKED POSITION, WILL CONTINUE TO MONITOR FOR ANY CHANGES IN CONDITION.
--- NOTE | 2018-02-26 19:26 | NUR ---
TRASH COLLECTOR TRUCK DRIVER/CLOSING NOTES RECEIVED PT. IN BED A&OX1-2. PT.'S ON TELE MONITOR. PT. IS BREATHING UNLABORED ON ROOM AIR. NO S/S OF ACUTE DISTRESS. PT. HAS LEFT LOWER EXTREMITY, AND ABOVE THE KNEE REDNESS WITH EDEMA. IV FLUIDS RUNNING AT 75 ML/HR. BED IS IN LOWEST, AND LOCKED POSITION. 2 SIDE RAILS UP AND CALL LIGHT IS WITHIN REACH. ALL NEEDS MET. WILL ENDORSE REPORT TO NURSE.
[2018-02-26 20:00] VITALS: BP 112/47
[2018-02-26] MEDS: ATORVASTATIN 10 MG TABLET PO SCH (21:21)
[2018-02-26] MEDS: HYDROCORTISONE ACETATE 25 MG/SUPP.RECT SUPP.RECT RC SCH (21:21)
[2018-02-26] MEDS: PRIMIDONE 50 MG TABLET PO SCH (21:21)
[2018-02-26] MEDS: POLYETHYLENE GLYCOL 3350 17 GM POWD.PACK PO SCH (21:22)
[2018-02-26] MEDS: INSULIN ASPART/LISPRO 100 UNIT/ML CARTRIDGE SQ PRN (21:24)
[2018-02-27] VITALS: BP 111/48
[2018-02-27] MEDS: IV NS 0.9% 1,000 ML IV PRN ×2 (02:19→21:41)
[2018-02-27 04:00] VITALS: BP 123/44
[2018-02-27] MEDS: CEFAZOLIN 1 GM in IV D5W 50 ML IV SCH ×3 (04:15→21:28)
--- NOTE | 2018-02-27 05:59 | NUR ---
BUILDING ILLUMINATING ENGINEER NOTE BLADDER SCAN 50 CC, WHEN ENTERED ROOM QUESTIONED PATIENT IF URINATED STATED "JUST NOW", PT HAD BM AND WET DIAPER SOAKED THROUGH CHUCKS, DIAPER CHANGED WITH NO ISSUES
[2018-02-27 06:03] LABS: CALCIUM, SERUM 6.8 mg/dL (8.5-10.1); CARBON DIOXIDE 28 mmol/L (21-32); CHLORIDE 108 mmol/L (98-107); CREATININE 0.7 mg/dL (0.6-1.3); GLUCOSE 117 mg/dL (74-106); POTASSIUM 3.2 mmol/L (3.5-5.1); SODIUM SERUM 142 mmol/L (136-145); UREA NITROGEN, BLOOD 12 mg/dL (7-18)
[2018-02-27] MEDS: VANCOMYCIN 1 GM in IV D5W 250 ML IV SCH ×2 (06:14→17:01)
--- NOTE | 2018-02-27 07:12 | NUR ---
LINING LAYER NOTE RECEIVED PATIENT IN BED,ALERT WITH CONFUSION , ON TELE MONITOR SR , RT FA HL INTACT ON IVF ORDERED , NO SOB NOTED ON RA AT THIS TIME, BED IN LOWEST AND LOCKED POSITION, CALL LIGHT WITHIHN REACH .PLAN OF CARE DISCUSSED WITH PATENT , WILL CONT TO MONITOR CLOSELY
[2018-02-27] MEDS: BLOOD SUGAR DIAGNOSTIC 1 EACH STRIP IN SCH ×4 (07:55→22:26)
[2018-02-27 08:00] VITALS: BP 137/45
[2018-02-27] MEDS: PANTOPRAZOLE 40 MG TABLET.DR PO SCH (08:09)
[2018-02-27] MEDS: FINASTERIDE (5 MG) 5 MG TABLET PO SCH (08:10)
[2018-02-27] MEDS: METFORMIN 500 MG TABLET PO SCH (08:11)
[2018-02-27] MEDS: DULOXETINE HCL 30 MG CAPSULE.DR PO SCH (08:11)
[2018-02-27] MEDS: TRAMADOL HCL 50 MG TABLET PO SCH (08:11)
[2018-02-27] MEDS: ASCORBIC ACID 500 MG TABLET PO SCH (08:12)
[2018-02-27] MEDS: BACLOFEN (10 MG) 10 MG TABLET PO SCH ×3 (08:12→16:36)
[2018-02-27] MEDS: LINAGLIPTIN 5 MG TABLET PO SCH (08:12)
[2018-02-27] MEDS: CHOLECALCIFEROL 1,000 UNIT TABLET (VIT D3) PO SCH (08:13)
[2018-02-27] MEDS: GABAPENTIN 400 MG CAPSULE PO SCH ×3 (08:13→16:36)
[2018-02-27] MEDS: SILVER SULFADIAZINE CREAM 25 GM TUBE TP SCH (08:14)
[2018-02-27] MEDS: INSULIN ASPART/LISPRO 100 UNIT/ML CARTRIDGE SQ PRN (08:15)
[2018-02-27] MEDS: OLOPATADINE HCL 0.1% OPHTH BOTTLE EACHEYE SCH ×2 (08:16→16:37)
[2018-02-27] MEDS: POTASSIUM CHLORIDE 20 MEQ POWDER PACKET PO SCH (08:17)
--- NOTE | 2018-02-27 11:28 | NUR ---
[employer] COMPLIANCE INTERNSHIP NOTE BLADER SCANNER DONE, NOTED 217 ML OF URINE ,WILL CONT TO MONITOR CLOSELY, NO NEED TO DO STRAIGHT CATH PER DR BHANDARI ORDER, ALSO REFUSED TO CHECK BLOOD SUGAR, OFFERED X2 EXPLAINED OF IMPORTANCE,STILL REFUSING RIL,CONT TO ENCOURAGE TO DO
[2018-02-27 12:00] VITALS: BP_SYST 129; BP_SYST 137; BP_DIAS 45
--- NOTE | 2018-02-27 12:30 | NUR ---
ANAESTHETIC TECHNICIAN NOTE DIETITIAN AT BEDSIDE , NOTIFIED THAT PATIENT HAS POOR APPETITE, REFUSED MORNING BREAKFAST, STATED THAT WILL ORDER GLUCERNA SHAKE ,PATIENT AGREED, WILL F\U
[2018-02-27] MEDS: GLUCERNA SHAKE 237 ML CAN PO SCH ×2 (12:39→16:37)
[2018-02-27 16:00] VITALS: BP 131/46
--- NOTE | 2018-02-27 16:53 | NUR ---
TENANT COORDINATOR NOTE BLOOD SUGAR 110 MG\ DL, NO COVERAGE WITH INSULIN
[2018-02-27] MEDS: ASPIRIN 325 MG TABLET PO SCH (17:00)
--- NOTE | 2018-02-27 18:24 | NUR ---
ARTIST SCIENTIFIC NOTE BLADDER SCANNER DONE ,142 ML OF URINE NOTED, KEEP LEAN DRY , WILL CONT TO MONITOR CLOSELY STILL C\O THAT DINNER IS NOT GOOD , CALLED DIETITIAN, , WILL COME SOON TO SEE PATIENT
--- NOTE | 2018-02-27 19:10 | NUR ---
MONITORING SPECIALIST NOTE PATIENT RESTING IN BED, AOX1-2, CONFUSED, ON TELE SR, NO S/SX OF CARDIAC OR RESPIRATORY, RFA #22G WITH NS AT 75 ML/HR, PATENT FLUSHING WELL, NO PAIN NOTED, SKIN KEPT CLEAN AND DRY, LLE CELLULITIS, REDNESS AT SITE, SAFETY MAINTAINED AT ALL TIMES, CALL LIGHT WITHIN REACH, BED IN LOW LOCKED POSITION, WILL CONTINUE TO MONITOR FOR ANY CHANGES IN CONDITION.
[2018-02-27 20:00] VITALS: BP 134/50
[2018-02-27] MEDS: ATORVASTATIN 10 MG TABLET PO SCH (21:29)
[2018-02-27] MEDS: POLYETHYLENE GLYCOL 3350 17 GM POWD.PACK PO SCH (21:34)
[2018-02-27] MEDS: PRIMIDONE 50 MG TABLET PO SCH (21:34)
[2018-02-27] MEDS: HYDROCORTISONE ACETATE 25 MG/SUPP.RECT SUPP.RECT RC SCH (22:27)
[2018-02-28] VITALS: BP 145/55
--- NOTE | 2018-02-28 | NUR ---
REAL ESTATE CONSULTANT NOTE BLADDER SCAN <32ML, PT HAS WET DIAPER URINATING INDEPENDENTLY.
[2018-02-28 04:00] VITALS: BP 136/50
[2018-02-28] MEDS: CEFAZOLIN 1 GM in IV D5W 50 ML IV SCH ×2 (05:14→12:18)
[2018-02-28] MEDS: VANCOMYCIN 1 GM in IV D5W 250 ML IV SCH (05:58)
--- NOTE | 2018-02-28 06:00 | NUR ---
LUMBER KILN OPERATOR NOTE PT BLADDER SCAN 0, URINATED AND HAD A BOWEL MOVEMENT, DIAPER CHANGED.
[2018-02-28 06:37] LABS: CARBON DIOXIDE 26 mmol/L (21-32); CHLORIDE 108 mmol/L (98-107); CREATININE 0.8 mg/dL (0.6-1.3); GLUCOSE 135 mg/dL (74-106); POTASSIUM 3.5 mmol/L (3.5-5.1); SODIUM SERUM 141 mmol/L (136-145); UREA NITROGEN, BLOOD 13 mg/dL (7-18)
[2018-02-28] MEDS: BLOOD SUGAR DIAGNOSTIC 1 EACH STRIP IN SCH ×3 (07:30→12:15)
[2018-02-28 08:00] VITALS: BP 132/92
--- NOTE | 2018-02-28 08:00 | NUR ---
MS RN RECEIVED ON BED, AWAKE,ALERT,ORIENTED X2-3,NOT IN ANY FORM OF DISTRESS, RESPIRATIONS EVEN AND UNLABORED,NO SOB NOTED, LUNGS ARE DIMINISHED,ABDOMEN SOFT,POSITIVE BOWEL SOUNDS,DENIES PAIN AT THIS TIME, WILL MONITOR PT.
[2018-02-28] MEDS: DULOXETINE HCL 30 MG CAPSULE.DR PO SCH (08:42)
[2018-02-28] MEDS: ASCORBIC ACID 500 MG TABLET PO SCH (08:42)
[2018-02-28] MEDS: CHOLECALCIFEROL 1,000 UNIT TABLET (VIT D3) PO SCH (08:42)
[2018-02-28] MEDS: LINAGLIPTIN 5 MG TABLET PO SCH (08:42)
[2018-02-28] MEDS: GABAPENTIN 400 MG CAPSULE PO SCH ×2 (08:43→12:13)
[2018-02-28] MEDS: TRAMADOL HCL 50 MG TABLET PO SCH (08:43)
[2018-02-28] MEDS: METFORMIN 500 MG TABLET PO SCH (08:43)
[2018-02-28] MEDS: BACLOFEN (10 MG) 10 MG TABLET PO SCH ×2 (08:43→12:15)
[2018-02-28] MEDS: FINASTERIDE (5 MG) 5 MG TABLET PO SCH (08:43)
[2018-02-28] MEDS: PANTOPRAZOLE 40 MG TABLET.DR PO SCH (08:43)
[2018-02-28] MEDS: POTASSIUM CHLORIDE 20 MEQ POWDER PACKET PO SCH (08:44)
[2018-02-28] MEDS: GLUCERNA SHAKE 237 ML CAN PO SCH ×2 (08:45→12:16)
[2018-02-28] MEDS: OLOPATADINE HCL 0.1% OPHTH BOTTLE EACHEYE SCH (08:46)
--- NOTE | 2018-02-28 09:00 | NUR ---
MS NEWBERRY BREAKFAST SERVED,DUE MEDS GIVEN, TOLERATED WELL.
--- NOTE | 2018-02-28 12:00 | NUR ---
MS RN WAS SEEN BY DR. BHANDARI W/ ORDER TO BE DISCHARGE TODAY, REFUSED BLOOD SUGAR CHECK.
[2018-02-28] MEDS: SILVER SULFADIAZINE CREAM 25 GM TUBE TP SCH (12:16)
--- NOTE | 2018-02-28 12:20 | NUR ---
MS RN BLADDER SCAN SHOWS ONLY 40ML INSIDE, PATIENT IS PASSING URINE EVERSINCE THIS MORNING, NO S/S OF RETENTION NOTED.
--- NOTE | 2018-02-28 12:30 | NUR ---
MS RN PATIENT REFUSED MIDLINE INSERTION, DR. BHANDARI NOTIFIED.
--- NOTE | 2018-02-28 14:30 | NUR ---
MS RN PATIENT TRANSFERRED TO 4 SEASONS, REPORT GIVEN TO CONI FARRIS, ALL NEEDS ATTENDED, WENT W/ IV HEPLOCK AT RIGHT FORARM,NO S/S OF INFECTION AND PATENT.
== END 2018-02-28 14:12 | DRG 871 ==
LOC: ER 09:25 → TELE1 10:55
PROVIDERS: ADMIT Internal Medicine; ATTEND Internal Medicine
DX: A41.9 Sepsis, unspecified organism (principal); R53.2 Functional quadriplegia; G93.41 Metabolic encephalopathy; N39.0 Urinary tract infection, site not specified; N13.8 Other obstructive and reflux uropathy; L03.116 Cellulitis of left lower limb; E46 Unspecified protein-calorie malnutrition; N17.9 Acute kidney failure, unspecified; I25.10 Atherosclerotic heart disease of native coronary artery without angina pectoris; E11.65 Type 2 diabetes mellitus with hyperglycemia; N18.3 Chronic kidney disease, stage 3 (moderate); E11.22 Type 2 diabetes mellitus with diabetic chronic kidney disease; E11.40 Type 2 diabetes mellitus with diabetic neuropathy, unspecified; N40.1 Benign prostatic hyperplasia with lower urinary tract symptoms; S70.322A Blister (nonthermal), left thigh, initial encounter; X58.XXXA Exposure to other specified factors, initial encounter; L89.310 Pressure ulcer of right buttock, unstageable; S51.811A Laceration without foreign body of right forearm, initial encounter; Z87.891 Personal history of nicotine dependence; Z86.73 Personal history of transient ischemic attack (TIA), and cerebral infarction without residual deficits; M62.472 Contracture of muscle, left ankle and foot; M62.471 Contracture of muscle, right ankle and foot; F41.9 Anxiety disorder, unspecified; I12.9 Hypertensive chronic kidney disease with stage 1 through stage 4 chronic kidney disease, or unspecified chronic kidney disease; B95.5 Unspecified streptococcus as the cause of diseases classified elsewhere; E11.51 Type 2 diabetes mellitus with diabetic peripheral angiopathy without gangrene; G89.29 Other chronic pain; R65.20 Severe sepsis without septic shock
CPT/HCPCS: 36415; 70450-TC; 71045-TC; 80048-TC; 80053-TC; 80076-TC; 80202-TC; 81000-TC; 82962-TC; 83605-TC; 83735-TC; 84484-TC; 85025-TC; 85730-TC; 87040-TC; 87081-TC; 87086-TC; 93970-TC; A4349; A4606; A6402; A6403; J0690; J0696; J1815; J3370; J7030; J7060; Z7610

== ENCOUNTER 2019-11-08 13:09 | Inpatient (IN) | payer MEDICAID, MEDICARE ==
[~2019-11-08] VITALS: Ht 182.9 cm; Wt 78.0 kg
[~2019-11-08 13:09] MED LIST changes: -AMLO5TAB7 PO; +ASCO-352 PO; +BACL10TA PO; +CALA177L16 TP; +CETI-110 PO; -DICL100G16 TP; +DULO60CA45 PO; +FINA5TAB3 PO; -HYDR-3026 PO; +HYDR-500 PO; +HYDR25SU33 RC; -HYDR28.32 TP; -HYDR2VIA3 IVP; +LINA5TAB PO; -LORA-259 PO; -MAGN400O6 PO; -METF-440 PO; +METF500T67 PO; +METH10TA2 PO; +OLOP2.5D12 EACHEYE; -OMEP20TA5 PO; -ONDA4TAB8 PO; +PANT40TA2 PO; +POLY15DR40 EACHEYE; +PRIM50TA27 PO; -SITA50TA PO; -TAMS-12 PO; +TRAM50TA2 PO
--- NOTE | 2019-11-08 13:45 | NUR ---
BIB RA 102 FROM [facility]ARE [facility]ILITY DUE TO HIGH BP (SBP 180'S) AND TACHYCARDIA (120). PATIENT A/OX1, TACHYPNEA, ON 5LPM VIA NC WITH SPO2 OF 94%. ATTACHED TO THE MAIN LINE ASSEMBLER.
[2019-11-08] MEDS ORDERED: CARB-93 PO (13:47)
[2019-11-08] MEDS ORDERED: TAMS-12 PO (13:47)
[2019-11-08] MEDS ORDERED: CLOP75TA15 PO (13:47)
[2019-11-08] MEDS ORDERED: BISA5TAB10 PO (13:47)
[2019-11-08] MEDS ORDERED: GLIM2TAB31 PO (13:47)
[2019-11-08] MEDS ORDERED: ZINC1CAP2 PO (13:47)
[2019-11-08] MEDS ORDERED: PRIM50TA27 PO (13:47)
[2019-11-08] MEDS ORDERED: ACET-2605 PO (13:47)
[2019-11-08] MEDS ORDERED: MULT-447 PO (13:47)
[2019-11-08] MEDS ORDERED: ASPI-1152 PO (13:47)
[2019-11-08] MEDS ORDERED: POTA20TA83 PO (13:47)
[2019-11-08] MEDS ORDERED: BISA10SU11 RC (13:47)
[2019-11-08] MEDS ORDERED: BLOO-668 IN (13:47)
[2019-11-08] MEDS ORDERED: DICL100G16 TP (13:47)
[2019-11-08] MEDS ORDERED: AMLO5TAB9 PO (13:47)
[2019-11-08] MEDS ORDERED: MAGN400O6 PO (13:47)
--- NOTE | 2019-11-08 13:47 | NUR ---
IV LINE ESTABLISHED, BLOOD DRAWN AND SENT TO LAB, URINE OBTAINED AND SENT.
[2019-11-08 13:57] LABS: BASOPHILS # (AUTO) 0.1 /CMM (0.0-0.2); BASOPHILS % (AUTO) 0.5 % (0.0-2.0); EOSINOPHILS % (AUTO) 0.8 % (0.0-6.0); HEMATOCRIT 42 % (39-51); HEMOGLOBIN 13.1 g/dL (13.5-17.5); LYMPHOCYTES % (AUTO) 4.8 % (20.0-44.0); MEAN CORPUSCULAR HGB CONC 31 g/dl (31.0-36.0); MEAN CORPUSCULAR VOLUME 91 fL (80-96); MONOCYTES # (AUTO) 2.1 /CMM (0.1-1.30); MONOCYTES % (AUTO) 9.8 % (2.0-12.0); NEUTROPHILS # (AUTO) 18.4 /CMM (1.8-8.9); NEUTROPHILS % (AUTO) 84.1 % (43.0-81.0); PLATELET COUNT (AUTO) 305 /CMM (150-450); RED BLOOD CELL COUNT(AUTO) 4.59 MIL/uL (4.5-6.0); WHITE BLOOD COUNT (AUTO) 21.8 K/uL (4.3-11.0)
[2019-11-08] MEDS ORDERED: ACETAMINOPHEN 650 MG/SUPP.RECT RC ONE ×2 (14:00→14:01)
--- NOTE | 2019-11-08 14:08 | NUR ---
RT AT BEDSIDE FOR ABG.
--- NOTE | 2019-11-08 14:12 | NUR ---
COVID, RSV AND FLU SWAB ALL SENT TO LAB.
[2019-11-08 14:13] LABS: ABG BASE EXCESS -3.4 mmol/L; ABG OXYGEN SATURATION 94.8 % (92.0-98.5); ABG PCO2 30.4 mmHg (35.0-45.0); ABG PO2 77.7 mmHg (75.0-100.0); AaDO2 172.5 mmHg; COHb 0.3 % (0.5-1.5); MetHb 0.5 % (0.0-1.5); SITE, ABG Right Radial; VENT MODE, BG NC 5 L
[2019-11-08 14:15] LABS: APPEARANCE,URINE CLOUDY (CLEAR); BILIRUBIN,URINE SMALL (NEGATIVE); BLOOD, URINE LARGE Ery/uL (NEGATIVE); COLOR,URINE YELLOW (YELLOW); KETONES,URINE TRACE (NEGATIVE); LEUKOCYTE ESTERASE ,URINE SMALL (NEGATIVE); NITRITE, URINE NEGATIVE (NEGATIVE); PH,URINE 5.5 (5.0-8.0); PROTEIN,URINE 100 mg/dl (NEGATIVE); UGLUCOSE NEGATIVE (NEGATIVE); UROBILINOGEN,URINE 0.2 EU/dL (0.2)
[2019-11-08 14:25] LABS: ALANINE AMINOTRANSFERASE 149 U/L (12-78); ALBUMIN 2.4 g/dL (3.4-5.0); ALKALINE PHOSPHATASE 123 U/L (46-116); ASPARTATE AMINOTRANSFERASE 117 U/L (15-37); B-TYPE NATRIURETIC PEPTIDE 1355 PG/ML (0-125); BILIRUBIN,TOTAL 0.5 mg/dL (0.2-1.0); CALCIUM, SERUM 9.4 mg/dL (8.5-10.1); CARBON DIOXIDE 21 mmol/L (21-32); CHLORIDE 114 mmol/L (98-107); CREATININE 1.3 mg/dL (0.6-1.3); GLUCOSE 164 mg/dL (74-106); POTASSIUM 4.2 mmol/L (3.5-5.1); SODIUM SERUM 153 mmol/L (136-145); TOTAL PROTEIN, SERUM 7.8 g/dL (6.4-8.2); UREA NITROGEN, BLOOD 44 mg/dL (7-18)
[2019-11-08 14:26] LABS: FINE GRANULAR CASTS,URINE Few /LPF (None Seen); RBC,URINE 51-80 /HPF (0-2)
[2019-11-08 14:27] LABS: URINE AMORPHOUS URATE Many /HPF (None Seen)
--- NOTE | 2019-11-08 14:55 | NUR ---
NURSING SUP GAVE TELE BED 115-1.
[2019-11-08] MEDS ORDERED: VANCOMYCIN 1 GM in IV D5W 250 ML IV ONE (15:00)
[2019-11-08] MEDS ORDERED: CEFEPIME 1 GM in IV D5W 50 ML IV ONE (15:00)
--- NOTE | 2019-11-08 15:01 | NUR ---
PAGED DR. MARQUEZ OFFICE FOR PEER TO PEER.
[2019-11-08 15:12] LABS: CREATINE KINASE, TOTAL 105 U/L (39-308)
--- NOTE | 2019-11-08 15:31 | NUR ---
REPORT GIVEN TO AXEL NEWBERRY FOR SHINE.
--- NOTE | 2019-11-08 15:49 | NUR ---
PATIENT TRANSFERRED TO ROOM 114-2 VIA ACLS PROTOCOL, IN STABLE CONDITION. ENDORSED TO AXEL NEWBERRY FOR SHINE.
[2019-11-08 15:58] LABS: BILIRUBIN,DIRECT 0.2 mg/dL (0.0-0.2)
[2019-11-08 16:00] VITALS: BP 131/67
[2019-11-08 16:21] LABS: D-DIMER 2.54 mg/L(FEU (0.17-0.50)
[2019-11-08 16:26] LABS: BACTERIA,URINE 2+ /HPF (None Seen)
[2019-11-08 16:30] VITALS: BP 137/67
[2019-11-08] MEDS ORDERED: DEXTROSE 50%-WATER 50 ML DISP.SYRIN IV PRN (16:30)
[2019-11-08] MEDS ORDERED: ONDANSETRON HCL/PF 4 MG/2 ML VIAL IV PRN (16:30)
--- NOTE | 2019-11-08 16:30 | NUR ---
received pt form ER, lethargic, does not follow commands, ST, on 4L 02 sat 95%, NPO, f/c OK output, v/s stable, no pain, seen by Dr Gutiérrez, pt cleaned, changed and repositioned.
[2019-11-08 16:58] LABS: C-REACTIVE PROTEIN 31.1 mg/dL (0.0-0.9)
[2019-11-08] MEDS: IV 1/2NS 1000 ML 1,000 ML IV PRN (17:05)
[2019-11-08] MEDS: INSULIN ASPART/LISPRO 100 UNIT/ML CARTRIDGE SQ PRN ×2 (17:23→22:43)
[2019-11-08] MEDS: BLOOD SUGAR DIAGNOSTIC 1 EACH STRIP IN SCH ×2 (17:24→22:44)
[2019-11-08] MEDS ORDERED: NA PHOS,M-B/NA PHOS,DI-BA 1 EA ENEMA RC PRN (18:30)
[2019-11-08] MEDS ORDERED: TRAMADOL HCL 50 MG TABLET PO PRN (18:30)
[2019-11-08 18:34] LABS: FERRITIN 2009 ng/mL (8-388)
[2019-11-08 20:00] VITALS: BP 139/77
[2019-11-08] MEDS ORDERED: CEFTRIAXONE 1GM BAG (ER ONLY) 1 GM/50 ML PIGGYBACK IV ONE (21:00)
[2019-11-08] MEDS: ENOXAPARIN SODIUM 40 MG/0.4 ML DISP.SYRIN SQ SCH (21:53)
[2019-11-08] MEDS: CEFTRIAXONE 1 G in IV D5W 50 ML IV SCH (21:53)
[2019-11-08] MEDS: ATORVASTATIN 40 MG TABLET PO SCH (22:00)
[2019-11-08] MEDS ORDERED: ATORVASTATIN 10 MG TABLET PO SCH (22:00)
[2019-11-08] MEDS ORDERED: TAMSULOSIN 0.4 MG CAP.SR.24H PO SCH (22:00)
[2019-11-09] VITALS (35 sets, daily range): BP systolic 42–139; BP diastolic 27–95
--- NOTE | 2019-11-09 04:47 | NUR ---
RN notes Patient in bed comfortably resting with no distress noted. On O2 at 4lpm via nasal cannula, tolerating well, breathing even and unlabored. Alert with confusion, eyes opens with eye tracking, non verbal. No physical manifestation of pain or discomfort. Vital signs wnl. Labs called with critical lab result for Fibrinogen 841. Relayed to MD (Dr. Noriega). No new orders as of this time. No significant change of condition. Kept clean and dry. Will endorse to next shift for continuity of care.
[2019-11-09] MEDS: IV 1/2NS 1000 ML 1,000 ML IV PRN ×2 (06:01→21:24)
[2019-11-09 06:21] LABS: CALCIUM, SERUM 8.7 mg/dL (8.5-10.1); CREATININE 1.1 mg/dL (0.6-1.3); POTASSIUM 3.8 mmol/L (3.5-5.1)
[2019-11-09 06:39] LABS: BASOPHILS % (AUTO) 0.3 % (0.0-2.0); HEMATOCRIT 39 % (39-51); HEMOGLOBIN 12.3 g/dL (13.5-17.5); LYMPHOCYTES # (AUTO) 1.2 /CMM (0.8-4.8); LYMPHOCYTES % (AUTO) 6.7 % (20.0-44.0); MEAN CORPUSCULAR HGB CONC 32 g/dl (31.0-36.0); MEAN CORPUSCULAR VOLUME 91 fL (80-96); MONOCYTES # (AUTO) 1.5 /CMM (0.1-1.30); MONOCYTES % (AUTO) 8.8 % (2.0-12.0); NEUTROPHILS # (AUTO) 14.3 /CMM (1.8-8.9); NEUTROPHILS % (AUTO) 83.2 % (43.0-81.0); PLATELET COUNT (AUTO) 238 /CMM (150-450); RED BLOOD CELL COUNT(AUTO) 4.28 MIL/uL (4.5-6.0); WHITE BLOOD COUNT (AUTO) 17.2 K/uL (4.3-11.0)
--- NOTE | 2019-11-09 06:56 | NUR ---
RN notes Critical Lab Value of 2.5 reported by lab at 0645. made aware.
--- NOTE | 2019-11-09 07:00 | NUR ---
RN notes Noted to have difficulty breathing using accessory muscles with O2sate 89-90%, change nasal cannula to non-rebreather mask at 100% oxygenation. O2sat went u[ to 97-98%. MD ordered ABG stat. Endorsed to next shift.
--- NOTE | 2019-11-09 07:00 | NUR ---
ELECTRICIAN JOURNEYMAN WIREMAN TD PATIENT OPENS EYES, SEEMS DISORIENTED, PATIENT DOES NOT FOLLOW COMMANDS, ON EXTERNAL MONITOR PATIENT ST 110'S , PATIENT ON NON REBREATHING sATURATING > 95 PERCENT, ON BED REST, SACRAL STG 3 - COVERED WITH MEPILEX, HAS LEFT HAND # 20 IV , NO SIGNS OF INFILTRAION OR INFECTION, PATIENT BUE EDEMA +1 BED LOCKED LOWEST POSITION CALL LIGHT WITH IN REACH ALL SAFETY MEASURE IMPLEMENTED PER HOSPITAL POLICY
[2019-11-09] MEDS ORDERED: PANTOPRAZOLE 40 MG TABLET.DR PO SCH (07:30)
[2019-11-09 07:43] LABS: ABG BASE EXCESS -3.5 mmol/L; ABG PCO2 33.6 mmHg (35.0-45.0); ABG PH 7.402 (7.350-7.450); ABG PO2 177.7 mmHg (75.0-100.0); AaDO2 501.7 mmHg; COHb 0.3 % (0.5-1.5); MetHb 0.3 % (0.0-1.5); O2Hb 98.4 % (94.0-97.0); SITE, ABG Left Radial; VENT MODE, BG 15L NRB
[2019-11-09] MEDS: CLOPIDOGREL BISULFATE 75 MG TABLET PO SCH (09:00)
[2019-11-09] MEDS ORDERED: ASCORBIC ACID 500 MG TABLET PO SCH (09:00)
[2019-11-09] MEDS ORDERED: MULTIVIT W/MINERALS 1 TAB TABLET PO SCH (09:00)
[2019-11-09] MEDS ORDERED: AMLODIPINE BESYLATE 5 MG TABLET PO SCH (09:00)
--- NOTE | 2019-11-09 09:00 | NUR ---
FUEL CELL ASSEMBLER- ABG 177 - CHANGE NON REBREATHER TO SIMPLE MASK PATIENT O2 94%
[2019-11-09] MEDS: BLOOD SUGAR DIAGNOSTIC 1 EACH STRIP IN SCH ×4 (10:04→22:21)
--- NOTE | 2019-11-09 10:06 | NUR ---
DIRECTOR OF PROGRAM MANAGEMENT- MED NOT GIVEN PATIENT DISORIENTED ASPIRATION RISK
[2019-11-09] MEDS: INSULIN ASPART/LISPRO 100 UNIT/ML CARTRIDGE SQ PRN (10:16)
--- NOTE | 2019-11-09 16:46 | NUR ---
dr. armas notified patient desaturates on o2 mask,placed on nonrebreather and sat improved to 93-95%.per dr. armas he wants patient to icu and he already notified dr. patrick for consult.
--- NOTE | 2019-11-09 16:51 | NUR ---
message left to family regarding transfer.
--- NOTE | 2019-11-09 16:59 | NUR ---
CERTIFIED COATINGS INSPECTOR - TRANSFER TO ICU
--- NOTE | 2019-11-09 17:00 | NUR ---
ARCHIVIST MILITARY HISTORY BEDSIDE REPORT GIVEN TO NURSE AND CHARGE NURSE @ BEDSIDE.
--- NOTE | 2019-11-09 17:30 | NUR ---
PROFILE SAW SETUP OPERATOR NOTES (OPENING, TRANSFERRED FROM [facility]) RECEIVED PATIENT FROM [facility], NURSE HE. PATIENT TRANSFERRED BY BED. AWAKE BUT DISORIENTED. PUT PATIENT ON HIGH FLOW BY RT. PATIENT IS HAVING HARD TIME BREATHING. SINUS TACHY 122-123. PATIENT HAS NO BELONGINGS. SACRAL WOUND STAGE 3. ON ISOLATION FOR RULE OUT COVID. LEFT HAND IV ACCESS #20 PATENT AND .045 % NS IS RUNNING AT THE RATE OF 60 ML/HR. PER [facility] RN PATIENT HAD 1 BM TODAY AND HAD AN OUTPUT OF 350 CC IN VASQUEZ CATHETER. STABILIZED PATIENT AND PUT HIM ON MONITOR. TEMPRATURE 100.7 AT THIS MOMENT, PER DR BHANDARI NO ANTIPYRETICS . COOLING MEASURES APPLIED. CALL LIGHT WITHIN REACH, BED AT THE LOWEST POSITION. WILL CONTINUE TO MONITOR THE PATIENT.
--- NOTE | 2019-11-09 17:41 | NUR ---
POLICE BOOKING OFFICER NOTES BLOOD GLUCOSE LEVEL IS 134 MG/HR NO INSULIN WAS GIVEN, PATIENT IS REFUSING TO EAT DUE TO SOB.
--- NOTE | 2019-11-09 19:05 | NUR ---
RN OPENING NOTES: RECEIVED REPORT FROM STANISLAV NEWBERRY. PATIENT IN BED, EYES OPEN BUT NONVERBAL. PATIENT ON HIGH FLOW 100% 40L, STILL TACHYPNEIC WITH LABORED BREATHING, O2 SAT 88-90%. PER STANISLAV NEWBERRY, PATIENT NEEDS TO BE INTUBATED ORDERED. STAFF WAS MADE AWARE BY AM CHARGE NURSE. ON BEDSIDE MONITOR, TACHY HR 120-130s. PATIENT IS R/O COVID. ON DROPLET PRECAUTION. SIDE RAILS X 2 UP, HOB ELEVATED, SAFETY PRECAUTIONS IMPLEMENTED. BED LOCKED AND LOW POSITION. AWAITING FOR INTUBATION. CHARGE NURSE ED AWARE. WILL CONT. TO MONITOR FOR CHANGES. Addendum: 11/09/19 at 1927 by ROMA TRAN RN PATIENT ALSO FEBRILE AT THIS TIME, TEMP 101F. ON COOLING MEASURES. PER STANISLAV NEWBERRY, DR. BHANDARI ORDERED NO ANTIPYRETICS FOR PATIENT. WILL CONT. TO MONITOR.
--- NOTE | 2019-11-09 19:19 | NUR ---
[facility]EAN EXPORT AGENT NOTES (CLOSING) PATIENT IN BED, TACHYCARDIC, AND HAVING DIFFICULTY BREATHING. ON KEITH FLOW O2. STILL RULE OUT COVID. POSSIBLE INTUBATION. ALL NEEDS ATTENDED. CALL LIGHT WITHIN REACH, BED AT THE LOWEST POSITION LOCKED, REPORT GIVEN TO LOG HANDLER RN FOR SHINE.
--- NOTE | 2019-11-09 19:40 | NUR ---
RN NOTE: DR. WEAVER (ER MD), CHARGE NURSE ED, AND RT AT BEDSIDE TO INTUBATE PATIENT. AT 1954: INTUBATION DONE. PATIENT TOLERATED PROCEDURE. WILL CONT. TO MONITOR.
[2019-11-09] MEDS ORDERED: PROPOFOL 100 ML IV PRN (20:00)
--- NOTE | 2019-11-09 20:00 | NUR ---
RN NOTE: CALLED AND SPOKE WITH QUEENIE GOMEZ (EX-) AND UPDATED ON PATIENT STATUS. ALSO RECEIVED TELEPHONE CONSENT FOR PICC LINE INSERTION. WITNESSED BY ANOTHER RN LILIA. WILL CONT. TO MONITOR PATIENT.
[2019-11-09 20:55] LABS: ABG BASE EXCESS -9.3 mmol/L; ABG OXYGEN SATURATION 94.4 % (92.0-98.5); ABG PCO2 53.8 mmHg (35.0-45.0); ABG PH 7.175 (7.350-7.450); AaDO2 566.2 mmHg; COHb 0.3 % (0.5-1.5); MetHb 0.4 % (0.0-1.5); O2Hb 93.7 % (94.0-97.0); PEEP,BG 5 cm H2O; SITE, ABG Left Radial; VENT MODE, BG AC 12/33 450 100% +5; VT, ABG 450 mL
--- NOTE | 2019-11-09 21:10 | NUR ---
RN NOTE: PATIENT'S BP IN 60s, HR 120s. PAGED OUTSIDE SALES ADVERTISING EXECUTIVE DR. BHANDARI TO GET ORDERS. AWAITING FOR CALL BACK. CHARGE NURSE ED MADE AWARE.
--- NOTE | 2019-11-09 21:19 | NUR ---
RN NOTE: SPOKE WITH DR. BHANDARI AND UPDATED ON PATIENT STATUS. BP STILL IN THE 60s, HR 120s. RECEIVED NEW ORDERS. WILL START ON DARCY DRIP. CHARGE NURSE ED MADE AWARE. Addendum: 11/10/19 at 0449 by ROMA TRAN RN AT 2200, CHARGE NURSE ED INSERTED OROPHARYNGEAL GASTRIC TUBE. PATIENT TOLERATED PROCEDURE WELL. WILL CONT. TO MONITOR.
[2019-11-09] MEDS ORDERED: PHENYLEPHRINE 10 MG/ML VIAL ONE (21:21)
[2019-11-09] MEDS: ENOXAPARIN SODIUM 40 MG/0.4 ML DISP.SYRIN SQ SCH (21:28)
[2019-11-09] MEDS: PHENYLEPHRINE 50 MG in IV NS 0.9% 245 ML IV PRN (21:37)
[2019-11-09] MEDS ORDERED: CEFTRIAXONE 1 G VIAL ONE (21:40)
[2019-11-09] MEDS: CEFTRIAXONE 1 G in IV D5W 50 ML IV SCH (21:41)
--- NOTE | 2019-11-09 21:45 | NUR ---
RN NOTE: PICC LINE NURSE AT BEDSIDE.
[2019-11-09] MEDS: ATORVASTATIN 40 MG TABLET PO SCH (22:40)
--- NOTE | 2019-11-09 23:00 | NUR ---
RN NOTE: BS 136. INSULIN NOT GIVEN. PATIENT HAS BEEN NPO SINCE LUNCH PER AM SHIFT.
--- NOTE | 2019-11-09 23:45 | NUR ---
RN NOTE: SPOKE WITH DR. BHANDARI. SBP STILL IN THE 80s. RECOMMENDED IF PATIENT CAN BE STARTED ON LEVO DRIP. PER MD, PATIENT NOT TO BE STARTED ON ANY MORE PRESSORS. MD ORDERED BOLUS NS 1L AND HYDROCORTISONE 100 MG IV Q8H. ORDERS READ BACK AND CONFIRMED. WILL CONT. TO MONITOR. Addendum: 11/10/19 at 0716 by ROMA TRAN RN ALSO MADE AWARE OF PATIENT DESATURATION AND SUSTAINED LOW SBP 60s-80s. MAXED ON DARCY. PER DR. BHANDARI, NO MORE PRESSORS. WILL CONT. TO MONITOR.
[2019-11-10] VITALS (96 sets, daily range): BP systolic 67–126; BP diastolic 32–75
[2019-11-10] MEDS ORDERED: IV NS 0.9% 1,000 ML IV ONE
[2019-11-10] MEDS ORDERED: PHENYLEPHRINE 10 MG/ML VIAL ONE ×2 (00:22→04:13)
--- NOTE | 2019-11-10 01:00 | NUR ---
RN NOTE: CHARGE NURSE ED RELAYED CRITICAL ABG RESULT TO COMPETITIVE INTELLIGENCE MANAGER WITH NEW ORDERS FOR NEW VENT SETTINGS AND REPEAT ABG AT 0800.
[2019-11-10 01:18] LABS: ABG BASE EXCESS -8.5 mmol/L; ABG OXYGEN SATURATION 93.6 % (92.0-98.5); ABG PCO2 53.8 mmHg (35.0-45.0); ABG PH 7.187 (7.350-7.450); ABG PO2 85.2 mmHg (75.0-100.0); COHb 0.3 % (0.5-1.5); MetHb 0.3 % (0.0-1.5); SITE, ABG Right Radial; VENT MODE, BG AC 12 450 100% +5
[2019-11-10] MEDS: PHENYLEPHRINE 50 MG in IV NS 0.9% 245 ML IV PRN ×3 (01:56→08:55)
[2019-11-10 04:52] LABS: BASOPHILS # (AUTO) 0.1 /CMM (0.0-0.2); BASOPHILS % (AUTO) 0.5 % (0.0-2.0); EOSINOPHILS % (AUTO) 0.1 % (0.0-6.0); HEMATOCRIT 36 % (39-51); LYMPHOCYTES # (AUTO) 1.4 /CMM (0.8-4.8); LYMPHOCYTES % (AUTO) 4.8 % (20.0-44.0); MEAN CORPUSCULAR HGB CONC 31 g/dl (31.0-36.0); MEAN CORPUSCULAR VOLUME 95 fL (80-96); MONOCYTES # (AUTO) 2.2 /CMM (0.1-1.30); MONOCYTES % (AUTO) 7.5 % (2.0-12.0); NEUTROPHILS # (AUTO) 25.1 /CMM (1.8-8.9); NEUTROPHILS % (AUTO) 87.1 % (43.0-81.0); PLATELET COUNT (AUTO) 321 /CMM (150-450); RED BLOOD CELL COUNT(AUTO) 3.79 MIL/uL (4.5-6.0); WHITE BLOOD COUNT (AUTO) 28.8 K/uL (4.3-11.0)
[2019-11-10 05:05] LABS: CALCIUM, SERUM 8.1 mg/dL (8.5-10.1); CARBON DIOXIDE 20 mmol/L (21-32); CHLORIDE 118 mmol/L (98-107); CREATININE 2.3 mg/dL (0.6-1.3); GLUCOSE 109 mg/dL (74-106); SODIUM SERUM 153 mmol/L (136-145); UREA NITROGEN, BLOOD 51 mg/dL (7-18)
--- NOTE | 2019-11-10 05:32 | NUR ---
RN NOTE: RECEIVED COVID RESULT FROM LAB ([facility]). PATIENT IS NEGATIVE. CHARGE NURSE ED MADE AWARE.
--- NOTE | 2019-11-10 07:00 | NUR ---
RN CLOSING NOTE: BEDSIDE REPORT GIVEN TO JAKE NEWBERRY AND INFORMED OF EVENTS THROUGHOUT THE SHIFT. ENDORSED FOR CONTINUITY OF CARE.
--- NOTE | 2019-11-10 07:10 | NUR ---
RN NOTES: RECEIVED PT ON BED, INTUBATED, ON VENT, O2 SAT IN HIGH 90'S , FIO2 100%, SR ON MONITOR, HR IN 90'S , PEDRO DRINING TO GRAVITY, L UPPER ARM MIDLINE SITE CLEAN, DRY AND INTACT, DARCY AT 3 MCG/KG/MIN RUNNING , 1/2 NS AT 60CC/HR RUNNING , SBP IN 70'S , DR BHANDARI AWARE , NO MORE PRESSORS PER MD PER MORNING RN REPORT, PT IS DNR AT THIS TIME, OGT CLAMPED , SR UP x3 , CALL LIGHT WITHIN EASY REACH, BED LOCKED AND IN LOWEST POSITION, CONTINUE TO MONITOR.
[2019-11-10] MEDS ORDERED: SUCCINYLCHOLINE CHLORIDE 20 MG/ML VIAL IV ONE (07:23)
[2019-11-10] MEDS ORDERED: ETOMIDATE 2 MG/ML VIAL IV ONE (07:23)
[2019-11-10] MEDS ORDERED: FEE EMEERGENCY 1 MIN EA MC ONE (07:23)
[2019-11-10] MEDS: BLOOD SUGAR DIAGNOSTIC 1 EACH STRIP IN SCH ×4 (07:52→22:23)
[2019-11-10] MEDS ORDERED: HYDROCORTISONE SOD SUCCINATE 100 MG/2 ML VIAL IV SCH ×2 (08:00)
--- NOTE | 2019-11-10 08:00 | NUR ---
RN NOTES SPOKEN TO PT'S EX- ON THE PHONE , SHE STATED THAT SHE WILL FAXED US HER POWER OF ATTORNEYS DOCUMENT TODAY .
[2019-11-10] MEDS: HYDROCORTISONE SOD SUCCINATE 100 MG/2 ML VIAL IV SCH ×3 (08:16→23:36)
[2019-11-10] MEDS: CLOPIDOGREL BISULFATE 75 MG TABLET PO SCH (08:17)
[2019-11-10] MEDS: PANTOPRAZOLE 40 MG VIAL IV SCH (08:17)
[2019-11-10 08:42] LABS: ABG BASE EXCESS -11.7 mmol/L; ABG OXYGEN SATURATION 97.8 % (92.0-98.5); ABG PCO2 43.4 mmHg (35.0-45.0); ABG PH 7.186 (7.350-7.450); ABG PO2 114.9 mmHg (75.0-100.0); AaDO2 554.7 mmHg; COHb 0.3 % (0.5-1.5); MetHb 0.3 % (0.0-1.5); O2Hb 97.2 % (94.0-97.0); SITE, ABG Left Femoral; VENT MODE, BG AC 12 500 100% +5
[2019-11-10] MEDS: PHENYLEPHRINE 100 MG in IV NS 0.9% 240 ML IV PRN ×2 (12:47→20:07)
--- NOTE | 2019-11-10 13:00 | NUR ---
RN NOTES DR ELISABET ARIZMENDI REGARDING LOW URINE OUTPUT . ORDER RECEIVED TO START PT ON SECOND PRESSORS, LEVO GTT AT THIS TIME. NO FAXED DOCUMENT REGARDING POWER OF SYSTEM CONTROLLER DOCUMENTS FROM PT'S EX- YET .CONTINUE TO MONITOR .
[2019-11-10] MEDS ORDERED: IV NS 0.9% 500 ML IV STA (13:07)
[2019-11-10] MEDS: NOREPINEPHRINE 8 MG in IV NS 0.9% 242 ML IV PRN (13:24)
[2019-11-10] MEDS ORDERED: FEE PK DOSING 1 MIN EA MC ONE (13:31)
[2019-11-10] MEDS: CEFEPIME 2 GM in IV D5W 100 ML IV SCH (14:50)
[2019-11-10] MEDS ORDERED: VANCOMYCIN 1 GM in IV D5W 250 ML IV SCH (15:00)
[2019-11-10] MEDS: IV 1/2NS 1000 ML 1,000 ML IV PRN (15:31)
--- NOTE | 2019-11-10 17:30 | NUR ---
RN NOTES NO POA DOCUMENTS FROM PT'S EX- YET , CALL MAKE TO QUEENIE GOMEZ TO REMIND HER REGARDING THE DOCUMENT THAT NEEDS TO BE FAXED TO [facility]. SHE STATED THAT SHE WILL FAX IT IN NEXT AFEW HOURS .
[2019-11-10] MEDS: INSULIN ASPART/LISPRO 100 UNIT/ML CARTRIDGE SQ PRN ×3 (17:40→22:24)
--- NOTE | 2019-11-10 18:00 | NUR ---
RN NOTES PT REMAINS INTUBATED, ON VENT, VSS STABLE, ON DARCY AND LEVO GTT FOR BP SUPPORT ,SR UP X3 , CALL LIGHT WITHIN EASY REACH, BED LOCKED AND IN LOWEST POSITION, WILL ENDORSE TO CASTING MACHINE SERVICE OPERATOR NURSE FOR CONTINUITY OF CARE .
--- NOTE | 2019-11-10 19:30 | NUR ---
HOSE SPRAYER INITIAL SHIFT NOTES RECEIVED PATIENT IN BED, ASLEEP/EYE CLOSED. PATIENT OBTUNDED, WITHDRAWS TO PAINFUL STIMULI, NO MEANINGFUL COMMUNICATION ESTABLISHED. PATIENT ORALLY INTUBATED, ON MECHANICAL VENTILATION, SETTINGS PRESCRIBED. BEDSIDE INDUSTRIAL TWISTING MACHINE OPERATOR READS SINUS RHYTHM WITH BBB AND 1ST DEGREE HB, HR 88 BPM AT THIS TIME. BERNARDINO MIDLINE PATENT AND INTACT, ALL PORTS FLUSHED WITH NS, FREE FROM ANY SIGNS AND SYMPTOMS OF INFILTRATION OR PHLEBITIS. NEOSYNEPHRINE DRIP @ 3MCG/KG/MIN, LEVOPHED TITRATED OFF, WILL MONITOR BP CLOSELY AND RESUME IF BP DROPS. VASQUEZ PATENT AND INTACT, MINIMAL URINE OUTPUT NOTED. BED IN LOWEST AND LOCKED POSITION, HOB KEPT IN SEMIFOWLER'S POSITION. WILL MONITOR CLOSELY
--- NOTE | 2019-11-10 20:15 | NUR ---
ASSISTANT TO THE VICE PRESIDENT NOTES BP 86/67, ALREADY ON MAX DOSE OF NEOSYNEPHRINE DRIP. LEVOPHED DRIP RESTARTED @ 0.1MCG/KG/MIN, WILL TITRATE DRIPS ACCORDINGLY
[2019-11-10] MEDS: ATORVASTATIN 40 MG TABLET PO SCH (22:06)
[2019-11-11] VITALS (89 sets, daily range): BP systolic 95–143; BP diastolic 31–74
[2019-11-11] MEDS: PHENYLEPHRINE 100 MG in IV NS 0.9% 240 ML IV PRN ×3 (03:33→18:19)
[2019-11-11] MEDS: NOREPINEPHRINE 8 MG in IV NS 0.9% 242 ML IV PRN (03:35)
--- NOTE | 2019-11-11 04:00 | NUR ---
BPM DEVELOPER NOTES FULL BED-BATH RENDERED, PATIENT TOLERATED FAIRLY. ALL SKIN ISSUES PHOTOGRAPHED AND DOCUMENTED PER PROTOCOL. WILL MONITOR CLOSELY
[2019-11-11 04:35] LABS: CALCIUM, SERUM 7.6 mg/dL (8.5-10.1); CARBON DIOXIDE 17 mmol/L (21-32); CHLORIDE 116 mmol/L (98-107); CREATININE 3.1 mg/dL (0.6-1.3); GLUCOSE 166 mg/dL (74-106); POTASSIUM 5.5 mmol/L (3.5-5.1); SODIUM SERUM 150 mmol/L (136-145); UREA NITROGEN, BLOOD 71 mg/dL (7-18)
--- NOTE | 2019-11-11 07:07 | NUR ---
RN NOTES RECEIVED PATIENT ON BED, INTUBATED, ON VENT , TOLERATING VENT SETTING WELL, PT WITHDRAWS TO PAINFUL STIMULI, BEDSIDE BARREL SCRAPER READS SINUS RHYTHM WITH BBB AND 1ST DEGREE HB, HR IN 80'S . BERNARDINO MIDLINE PATENT, INTACT AND CLEAN, DARCY DRIP @ 3MCG/KG/MIN, LEVOPHED AT .08 MCG/KG/MIN AT THIS TIME, WILL MONITOR BP CLOSELY AND RESUME IF BP DROPS. VASQUEZ PATENT AND INTACT, MINIMAL URINE OUTPUT NOTED. BED IN LOWEST AND LOCKED POSITION, HOB KEPT IN SEMI-EDDY'S POSITION. CONTINUE TO MONITOR CLOSELY
[2019-11-11] MEDS: CLOPIDOGREL BISULFATE 75 MG TABLET PO SCH (08:03)
[2019-11-11] MEDS: HYDROCORTISONE SOD SUCCINATE 100 MG/2 ML VIAL IV SCH ×2 (08:03→16:19)
[2019-11-11] MEDS: PANTOPRAZOLE 40 MG VIAL IV SCH (08:03)
--- NOTE | 2019-11-11 08:26 | NUR ---
WOUND CARE CONSULT: PT PRESENTS WITH SACRAL WOUND WHICH EXTENDS TO BILATERAL BUTTOCKS, AT LEAST PARTIAL THICKNESS, PRESENT ON ADMISSION. PT ALSO NOTED TO HAVE INTACT DEEP TISSUE INJURY TO LEFT HIP AREA. RECOMMEND SURGICAL CONSULT. DR DIAZ NOTIFIED OF CONSULT REQUEST. PT NOTED TO HAVE MULTIPLE CO-MORBIDITIES INCLUDING ACUTE RESPIRATORY FAILURE (CURRENTLY INTUBATED), PNEUMONIA, SEPTIC SHOCK AND RENAL FAILURE. DUE TO MULTIPLE CO-MORBITIES, FURTHER SKIN BREAKDOWN MAY BE UNAVOIDABLE. LOW AIRLOSS BED TO BE PLACED. DISCUSSED SKIN PROTECTION WITH NURSING STAFF. PT IS INCONTINENT OF STOOL. WILL SEE PRN. IN AGREEMENT WITH PLAN OF CARE.
[2019-11-11] MEDS ORDERED: Z GUARD REMEDY 2 OZ OINT TP PRN (08:30)
[2019-11-11] MEDS: BLOOD SUGAR DIAGNOSTIC 1 EACH STRIP IN SCH ×4 (08:43→21:28)
[2019-11-11] MEDS: INSULIN ASPART/LISPRO 100 UNIT/ML CARTRIDGE SQ PRN ×4 (08:43→21:50)
[2019-11-11] MEDS: CITRIC ACID/SODIUM CITRATE (BICITRA)15 ML UDC NG SCH ×4 (08:46→21:28)
[2019-11-11] MEDS: Z GUARD REMEDY 2 OZ OINT TP SCH (08:47)
--- NOTE | 2019-11-11 09:00 | NUR ---
RN NOTES PT STILL TACHYPNEIC, NO SEDATION PER DR BHANDARI ORDER.
--- NOTE | 2019-11-11 09:00 | NUR ---
RN NOTES DR ELISABET ARIZMENDI REGARDING ABG AND LAB RESULTS , CONTINUE TO MONITOR .
[2019-11-11 09:04] LABS: ABG BASE EXCESS -14.9 mmol/L; ABG OXYGEN SATURATION 99.3 % (92.0-98.5); ABG PCO2 29.5 mmHg (35.0-45.0); ABG PH 7.213 (7.350-7.450); ABG PO2 224.4 mmHg (75.0-100.0); COHb 0.3 % (0.5-1.5); MetHb 0.3 % (0.0-1.5); O2Hb 98.7 % (94.0-97.0); SITE, ABG Right Femoral; VENT MODE, BG AC12 500 80% +5
[2019-11-11] MEDS: Sodium Bicarbonate 50 MEQ in IV D5W 1,000 ML IV PRN ×2 (10:29→18:18)
[2019-11-11 10:49] LABS: APPEARANCE,URINE CLOUDY (CLEAR); BILIRUBIN,URINE MODERATE (NEGATIVE); BLOOD, URINE LARGE Ery/uL (NEGATIVE); KETONES,URINE TRACE (NEGATIVE); LEUKOCYTE ESTERASE ,URINE TRACE (NEGATIVE); NITRITE, URINE NEGATIVE (NEGATIVE); PROTEIN,URINE 100 mg/dl (NEGATIVE); UGLUCOSE NEGATIVE (NEGATIVE); UROBILINOGEN,URINE 0.2 EU/dL (0.2)
[2019-11-11 10:50] LABS: COLOR,URINE AMBER (YELLOW)
[2019-11-11 11:08] LABS: BACTERIA,URINE Few /HPF (None Seen); MUCUS,URINE Moderate /LPF (None Seen); RBC,URINE 21-50 /HPF (0-2); SQUAMOUS EPITHELIAL CELL,UR 0-2 /HPF (None Seen); URINE AMORPHOUS URATE Moderate /HPF (None Seen); WBC,URINE 0-2 /HPF (0-3)
[2019-11-11 12:00] LABS: EOSINOPHIL,URINE None Seen
[2019-11-11 12:02] LABS: CREATININE, URINE 143.9 MG/DL (30.0-125.0)
[2019-11-11 12:08] LABS: URINE TOTAL PROTEIN 631.7 mg/dL (0-11.9)
[2019-11-11 12:22] LABS: BASOPHILS # (AUTO) 0.1 /CMM (0.0-0.2); BASOPHILS % (AUTO) 0.2 % (0.0-2.0); EOSINOPHILS % (AUTO) 0.3 % (0.0-6.0); HEMATOCRIT 33 % (39-51); HEMOGLOBIN 10.1 g/dL (13.5-17.5); LYMPHOCYTES # (AUTO) 0.6 /CMM (0.8-4.8); LYMPHOCYTES % (AUTO) 2.2 % (20.0-44.0); MEAN CORPUSCULAR HGB CONC 30 g/dl (31.0-36.0); MEAN CORPUSCULAR VOLUME 94 fL (80-96); MONOCYTES # (AUTO) 1.8 /CMM (0.1-1.30); MONOCYTES % (AUTO) 6.4 % (2.0-12.0); NEUTROPHILS # (AUTO) 25.3 /CMM (1.8-8.9); NEUTROPHILS % (AUTO) 90.9 % (43.0-81.0); PLATELET COUNT (AUTO) 244 /CMM (150-450); RED BLOOD CELL COUNT(AUTO) 3.57 MIL/uL (4.5-6.0); WHITE BLOOD COUNT (AUTO) 27.8 K/uL (4.3-11.0)
[2019-11-11 13:14] LABS: CALCIUM, SERUM 6.8 mg/dL (8.5-10.1); CARBON DIOXIDE 17 mmol/L (21-32); CHLORIDE 116 mmol/L (98-107); CREATININE 3.4 mg/dL (0.6-1.3); GLUCOSE 202 mg/dL (74-106); POTASSIUM 5.3 mmol/L (3.5-5.1); SODIUM SERUM 150 mmol/L (136-145); UREA NITROGEN, BLOOD 75 mg/dL (7-18)
[2019-11-11 13:14] LABS: BAND % (MANUAL) 15 % (0.0-5.0); LYMPHOCYTES % (MANUAL) 5 % (16-48); MONOCYTES % (MANUAL) 9 % (0-11.0); NEUTROPHILS % (MANUAL) 71 (42-76)
[2019-11-11 13:28] LABS: PHOSPHORUS 8.3 mg/dL (2.5-4.9)
[2019-11-11] MEDS: CEFEPIME 2 GM in IV D5W 100 ML IV SCH (13:38)
--- NOTE | 2019-11-11 13:53 | NUR ---
RN NOTES DR SIMPSON AND DR. BHANDARI NOTIFED REGARDING LA 2.6 AND PHOS 8.3, NO NEW ORDER RECEIVED YET ,
[2019-11-11 15:57] LABS: BILIRUBIN,DIRECT 0.7 mg/dL (0.0-0.2); BILIRUBIN,TOTAL 1.2 mg/dL (0.2-1.0)
--- NOTE | 2019-11-11 18:11 | NUR ---
RN NOTES PT REMAINS INTUBATED, ON VENT, VSS STABLE, ON DARCY AT 2MCG/KG/MIN AT THIS TIME, LEVO OFF , SR UP X3 , CALL LIGHT WITHIN EASY REACH, BED LOCKED AND IN LOWEST POSITION, WILL ENDORSE TO CONCEPTOR NURSE FOR CONTINUITY OF CARE .
--- NOTE | 2019-11-11 18:12 | NUR ---
RN NOTES NO POA DOCUMENTATION FORM PT'S EX YET, DR BHANDARI AWARE.
--- NOTE | 2019-11-11 19:30 | NUR ---
GATHERING WORKER INITIAL SHIFT NOTES RECEIVED PATIENT IN BED, ASLEEP/EYE CLOSED. PATIENT OBTUNDED, WITHDRAWS TO PAINFUL STIMULI, NO MEANINGFUL COMMUNICATION ESTABLISHED. PATIENT ORALLY INTUBATED, ON MECHANICAL VENTILATION, SETTINGS PRESCRIBED. BEDSIDE ACCOUNTING ADVISORY SERVICES MANAGER READS SINUS RHYTHM WITH BBB AND 1ST DEGREE HB, HR 86 BPM AT THIS TIME. BERNARDINO MIDLINE PATENT AND INTACT, ALL PORTS FLUSHED WITH NS, FREE FROM ANY SIGNS AND SYMPTOMS OF INFILTRATION OR PHLEBITIS. NEOSYNEPHRINE DRIP @ 1.8MCG/KG/MIN, NO SEDATION NEEDED AT THIS TIME. VASQUEZ PATENT AND INTACT, MINIMAL URINE OUTPUT NOTED. BED IN LOWEST AND LOCKED POSITION, HOB KEPT IN SEMIFOWLER'S POSITION. WILL MONITOR CLOSELY
--- NOTE | 2019-11-11 20:00 | NUR ---
NUCLEAR DESIGN ENGINEER NOTES PATIENT NOTED WITH LARGE BM, SOFT, BROWN, FORMED. FULL BED BATH GIVEN, TOLERATED WELL, WILL MONITOR CLOSELY
[2019-11-11] MEDS: ATORVASTATIN 40 MG TABLET PO SCH (21:28)
[2019-11-12] VITALS (93 sets, daily range): BP systolic 84–139; BP diastolic 29–99
[2019-11-12] MEDS: HYDROCORTISONE SOD SUCCINATE 100 MG/2 ML VIAL IV SCH ×3 (00:01→16:56)
[2019-11-12] MEDS: Sodium Bicarbonate 50 MEQ in IV D5W 1,000 ML IV PRN (02:48)
[2019-11-12] MEDS ORDERED: VANCOMYCIN 1 GM in IV D5W 250 ML IV SCH (03:00)
[2019-11-12 04:12] LABS: BASOPHILS # (AUTO) 0.1 /CMM (0.0-0.2); BASOPHILS % (AUTO) 0.5 % (0.0-2.0); HEMATOCRIT 28 % (39-51); HEMOGLOBIN 9.1 g/dL (13.5-17.5); LYMPHOCYTES # (AUTO) 0.4 /CMM (0.8-4.8); MEAN CORPUSCULAR HGB CONC 32 g/dl (31.0-36.0); MEAN CORPUSCULAR VOLUME 90 fL (80-96); MONOCYTES # (AUTO) 0.8 /CMM (0.1-1.30); MONOCYTES % (AUTO) 4.3 % (2.0-12.0); NEUTROPHILS # (AUTO) 17.9 /CMM (1.8-8.9); NEUTROPHILS % (AUTO) 93.2 % (43.0-81.0); PLATELET COUNT (AUTO) 170 /CMM (150-450); RED BLOOD CELL COUNT(AUTO) 3.13 MIL/uL (4.5-6.0); WHITE BLOOD COUNT (AUTO) 19.2 K/uL (4.3-11.0)
[2019-11-12 04:27] LABS: CREATINE KINASE, TOTAL 1107 U/L (39-308)
[2019-11-12 04:31] LABS: ALANINE AMINOTRANSFERASE 498 U/L (12-78); ALKALINE PHOSPHATASE 319 U/L (46-116); ASPARTATE AMINOTRANSFERASE 979 U/L (15-37); BILIRUBIN,TOTAL 0.9 mg/dL (0.2-1.0); CALCIUM, SERUM 6.4 mg/dL (8.5-10.1); CARBON DIOXIDE 19 mmol/L (21-32); CHLORIDE 110 mmol/L (98-107); CREATININE 3.5 mg/dL (0.6-1.3); GLUCOSE 271 mg/dL (74-106); PHOSPHORUS 4.5 mg/dL (2.5-4.9); POTASSIUM 3.5 mmol/L (3.5-5.1); SODIUM SERUM 146 mmol/L (136-145); TOTAL PROTEIN, SERUM 5.2 g/dL (6.4-8.2); UREA NITROGEN, BLOOD 79 mg/dL (7-18)
[2019-11-12 04:52] LABS: ALBUMIN 1.4 g/dL (3.4-5.0)
--- NOTE | 2019-11-12 06:30 | NUR ---
CEMETERY KEEPER CLOSING NOTES PATIENT RESTING IN BED. NO FEVER THROUGHOUT THE SHIFT. PATIENT NOTED WITH 3 BMs THROUGHOUT SHIFT, SOFT/FORMED, BROWN, NOT DIARRHEA. NEOSYNEPHRINE DRIP TITRATED DOWN TO 0.7MCG/KG/MIN AND CONTINUES ON BICARB DRIP @ 125ML/HR. LOW AIR LOSS MATTRESS NEVER ARRIVED, FREQUENT REPOSITIONING DONE THROUGHOUT THE SHIFT
--- NOTE | 2019-11-12 07:40 | NUR ---
ICU/RN PT IS INTUBATED ON THE VENT AC MODE ,FIO2-40%,SAT O2-100%.AFEBRILE.ON NEOSYNEPHRINE DRIP.NOT SEDATED.OPEN EYES ,REACTIVE ON PAIN STIMULATION.G TUBE CLAMPED.PT IS NPO.LEFT UPPER ARM MIDLINE.F/C IN PLACE NO URINE OUTPUT.GENERALIZED EDEMA PRESENT.SUCTION PROVIDED,REPOSITION FOR COMFORT.
[2019-11-12] MEDS: BLOOD SUGAR DIAGNOSTIC 1 EACH STRIP IN SCH ×3 (07:55→18:07)
[2019-11-12 08:16] LABS: ABG BASE EXCESS -7.7 mmol/L; ABG OXYGEN SATURATION 96.2 % (92.0-98.5); ABG PCO2 21.9 mmHg (35.0-45.0); ABG PH 7.449 (7.350-7.450); ABG PO2 85.9 mmHg (75.0-100.0); AaDO2 174.1 mmHg; COHb 0.3 % (0.5-1.5); MetHb 0.3 % (0.0-1.5); O2Hb 95.6 % (94.0-97.0); SITE, ABG Right Femoral; VENT MODE, BG AC 12 550 40% +5
[2019-11-12] MEDS: Z GUARD REMEDY 2 OZ OINT TP SCH (08:32)
[2019-11-12] MEDS: CITRIC ACID/SODIUM CITRATE (BICITRA)15 ML UDC NG SCH ×4 (08:32→22:13)
[2019-11-12] MEDS: CLOPIDOGREL BISULFATE 75 MG TABLET PO SCH (08:32)
[2019-11-12] MEDS: PANTOPRAZOLE 40 MG VIAL IV SCH (08:32)
[2019-11-12] MEDS ORDERED: BUMETANIDE INJ 4 MG in IV D5W 24 ML IV ONE (09:00)
[2019-11-12] MEDS: IV 1/2NS 1000 ML 1,000 ML IV PRN (09:09)
--- NOTE | 2019-11-12 09:15 | NUR ---
ICU/RN DUE MEDS ARE GIVEN ORDERED.LABS REVIEW MD NOTIFIED.
[2019-11-12] MEDS: INSULIN ASPART/LISPRO 100 UNIT/ML CARTRIDGE SQ PRN ×2 (09:16→13:04)
[2019-11-12] MEDS ORDERED: BUMETANIDE INJ 4 MG in IV NS 0.9% 24 ML IV ONE (09:39)
[2019-11-12] MEDS: PHENYLEPHRINE 100 MG in IV NS 0.9% 240 ML IV PRN ×2 (12:47→18:25)
[2019-11-12] MEDS: CEFEPIME 2 GM in IV D5W 100 ML IV SCH (13:12)
[2019-11-12] MEDS ORDERED: DEXTROSE 50%-WATER 50 ML DISP.SYRIN IV PRN (17:00)
[2019-11-12 17:09] LABS: OCCULT BLOOD STOOL POSITIVE (NEGATIVE)
--- NOTE | 2019-11-12 18:00 | NUR ---
ICU/RN PM CARE PROVIDED.WOUND DRESSING DONE ORDERED.DUE MEDS ARE GIVEN ORDERED.AFEBRILE.STILL ON NEOSYNEPHRINE DRIP.
[2019-11-12] MEDS: NEPRO 1,000 ML BOTTLE GT PRN (18:12)
[2019-11-12] MEDS: INSULIN REGULAR, HUMAN 100 UNIT/ML 3 ML VIAL SQ PRN (18:22)
--- NOTE | 2019-11-12 21:30 | NUR ---
GUEST SERVICES DIRECTOR NOTES - DIARRHEA PATIENT WITH LARGE BM X1, LIQUID BROWN IN CONSISTENCY. SKIN ON SACRUM AND BUTTOCKS NOTED TO BE WORSENING DUE TO FREQUENT EXPOSURE TO FECAL MATERIAL. DR BHANDARI NOTIFIED. WITH NEW ORDER TO INSERT RECTAL TUBE. WILL INSERT RECTAL TUBE AND CLOSELY MONITOR
[2019-11-12] MEDS: ATORVASTATIN 40 MG TABLET PO SCH (22:13)
[2019-11-12] MEDS: INSULIN GLARGINE, 100 UNIT/ML CARTRIDGE SQ SCH (22:26)
--- NOTE | 2019-11-12 23:30 | NUR ---
PREMIX CONCRETE BATCHER NOTES NEOSYNEPHRINE DRIP TITRATED OFF, BP WNL. WILL MONITOR CLOSELY FOR NEED TO RESTART PRESSOR
[2019-11-13] VITALS (29 sets, daily range): BP systolic 90–149; BP diastolic 39–108
[2019-11-13] MEDS: HYDROCORTISONE SOD SUCCINATE 100 MG/2 ML VIAL IV SCH ×3 (00:35→23:11)
[2019-11-13] MEDS: BLOOD SUGAR DIAGNOSTIC 1 EACH STRIP IN SCH ×5 (00:43→23:07)
[2019-11-13] MEDS: INSULIN REGULAR, HUMAN 100 UNIT/ML 3 ML VIAL SQ PRN ×5 (00:46→23:08)
[2019-11-13] MEDS: IV 1/2NS 1000 ML 1,000 ML IV PRN ×2 (04:33→22:00)
[2019-11-13 04:48] LABS: BASOPHILS % (AUTO) 0.2 % (0.0-2.0); EOSINOPHILS % (AUTO) 0.2 % (0.0-6.0); HEMATOCRIT 28 % (39-51); HEMOGLOBIN 9.2 g/dL (13.5-17.5); LYMPHOCYTES # (AUTO) 0.4 /CMM (0.8-4.8); LYMPHOCYTES % (AUTO) 2.4 % (20.0-44.0); MEAN CORPUSCULAR HGB CONC 33 g/dl (31.0-36.0); MEAN CORPUSCULAR VOLUME 90 fL (80-96); MONOCYTES # (AUTO) 0.6 /CMM (0.1-1.30); MONOCYTES % (AUTO) 3.4 % (2.0-12.0); NEUTROPHILS # (AUTO) 15.7 /CMM (1.8-8.9); NEUTROPHILS % (AUTO) 93.8 % (43.0-81.0); PLATELET COUNT (AUTO) 104 /CMM (150-450); RED BLOOD CELL COUNT(AUTO) 3.15 MIL/uL (4.5-6.0); WHITE BLOOD COUNT (AUTO) 16.7 K/uL (4.3-11.0)
[2019-11-13 05:05] LABS: CARBON DIOXIDE 18 mmol/L (21-32); CHLORIDE 107 mmol/L (98-107); POTASSIUM 3.2 mmol/L (3.5-5.1); SODIUM SERUM 142 mmol/L (136-145)
[2019-11-13 05:06] LABS: ALANINE AMINOTRANSFERASE 771 U/L (12-78); ALKALINE PHOSPHATASE 528 U/L (46-116); BILIRUBIN,TOTAL 1.3 mg/dL (0.2-1.0); CALCIUM, SERUM 6.3 mg/dL (8.5-10.1); CREATININE 3.9 mg/dL (0.6-1.3); GLUCOSE 240 mg/dL (74-106); PHOSPHORUS 3.3 mg/dL (2.5-4.9); TOTAL PROTEIN, SERUM 5.1 g/dL (6.4-8.2)
[2019-11-13 05:20] LABS: ASPARTATE AMINOTRANSFERASE 3493 U/L (15-37)
[2019-11-13 05:21] LABS: IRON, SERUM 39 ug/dl (50-175); TOTAL IRON BINDING CAPACITY 93 ug/dl (250-450)
[2019-11-13 05:31] LABS: ALBUMIN 1.3 g/dL (3.4-5.0); FERRITIN 11053 ng/mL (8-388); UREA NITROGEN, BLOOD 86 mg/dL (7-18)
--- NOTE | 2019-11-13 06:49 | NUR ---
SCHOOL CROSSING GUARD SUPERVISOR CLOSING NOTES PATIENT RESTING IN BED, NO ACUTE DISTRESS NOTED AT THIS TIME. PRESSOR SUPPORT OFF SINCE 2300, BP REMAINS WITHIN NORMAL LIMITS. RECTAL TUBE REMAINS IN PLACE, DRAINING LIQUID BROWN STOOL VIA GRAVITY
[2019-11-13 08:29] LABS: ABG BASE EXCESS -6.5 mmol/L; ABG OXYGEN SATURATION 93.1 % (92.0-98.5); ABG PH 7.457 (7.350-7.450); ABG PO2 69.1 mmHg (75.0-100.0); AaDO2 189.7 mmHg; COHb 0.3 % (0.5-1.5); MetHb 0.1 % (0.0-1.5); O2Hb 92.7 % (94.0-97.0); SITE, ABG Right Radial; VENT MODE, BG AC 40%; VT, ABG 550 mL
--- NOTE | 2019-11-13 08:59 | NUR ---
FINAL INSPECTOR AND TESTER NOTE RELAYED TO DR HARPER REGARDING PATIENTS STOOL OB POSITIVE, PER OK TO HOLD PLAVIX AT THIS TIME. WILL CONTINUE TO MONITOR.
[2019-11-13] MEDS: CLOPIDOGREL BISULFATE 75 MG TABLET PO SCH (09:00)
[2019-11-13] MEDS: CITRIC ACID/SODIUM CITRATE (BICITRA)15 ML UDC NG SCH ×4 (09:16→20:21)
[2019-11-13] MEDS: PANTOPRAZOLE 40 MG VIAL IV SCH (09:16)
[2019-11-13] MEDS: Z GUARD REMEDY 2 OZ OINT TP SCH (09:17)
[2019-11-13] MEDS: INSULIN GLARGINE, 100 UNIT/ML CARTRIDGE SQ SCH ×2 (09:26→21:24)
--- NOTE | 2019-11-13 09:45 | NUR ---
LITIGATION PARTNER NOTE RELAYED POTASSIUM LEVEL TO DR CRAWFORD
[2019-11-13] MEDS ORDERED: BUMETANIDE INJ 6 MG in IV NS 0.9% 36 ML IV ONE (11:00)
[2019-11-13] MEDS: CEFEPIME 2 GM in IV D5W 100 ML IV SCH (13:11)
--- NOTE | 2019-11-13 16:00 | NUR ---
agricultural adviser note relayed to dr patrick patient spo2 on fio2 40% is 90-91%, fio2 titrated to 60%, spo2 96%. will continue to monitor.
--- NOTE | 2019-11-13 16:26 | NUR ---
INCREASED FI02 TO 60% DUE TO LOW SP02. PT FAILED FI02 TITRATION THROUGHOUT SHIFT. FIO2 ORDER CHANGED TO 60% PER DR. HARPER. NO SOB NOTED. WILL CONTINUE TO MONITOR.
[2019-11-13 18:18] LABS: APPEARANCE,URINE CLEAR (CLEAR); BILIRUBIN,URINE NEGATIVE (NEGATIVE); BLOOD, URINE LARGE Ery/uL (NEGATIVE); COLOR,URINE YELLOW (YELLOW); KETONES,URINE NEGATIVE (NEGATIVE); LEUKOCYTE ESTERASE ,URINE SMALL (NEGATIVE); NITRITE, URINE NEGATIVE (NEGATIVE); PH,URINE 5.5 (5.0-8.0); PROTEIN,URINE 30 mg/dl (NEGATIVE); UGLUCOSE 100 MG/DL mg/dL (NEGATIVE); UROBILINOGEN,URINE 0.2 EU/dL (0.2)
[2019-11-13 18:24] LABS: BACTERIA,URINE 1+ /HPF (None Seen); RBC,URINE 51-80 /HPF (0-2); SQUAMOUS EPITHELIAL CELL,UR Few /HPF (None Seen)
[2019-11-13 18:25] LABS: URIC ACID CRYSTALS,URINE Few /HPF (None Seen)
[2019-11-13 18:26] LABS: COARSE GRANULAR CASTS,URINE Few /LPF (None Seen); CREATININE, URINE 21.6 MG/DL (30.0-125.0); URINE AMORPHOUS URATE Few /HPF (None Seen); URINE TOTAL PROTEIN 131.6 mg/dL (0-11.9)
[2019-11-13 18:42] LABS: EOSINOPHIL,URINE None Seen
--- NOTE | 2019-11-13 19:05 | NUR ---
ROOM INSPECTOR NOTE RECEIVED PATIENT IN BED RESTING WITH HOB ELEVATED. NON-VERBAL. DNR CODE STATUS. BREATHING IS EVEN AND NON-LABORED. NO SOB NOTED AT THIS TIME. PATIENT IS VENT DEPENDANT, ON 60% FIO2. ON ORAL GT FEEDING RUNNING AT 35 ML/HR. IV SITE ON BERNARDINO MIDLINE IS CLEAN, DRY, AND PATENT. IV HYDRATION 1/2 NS RUNNING AT 50 ML/HR. PATIENT ON RECTAL TUBE. STOOL IS BROWN AND LIQUID IN CONSISTENCY. ON VASQUEZ CATH, URINE IS CLEAR AND YELLOW IN COLOR. IN NO APPARENT DISTRESS NOTED AT THIS TIME. WILL CONTINUE TO MONITOR.
--- NOTE | 2019-11-13 19:22 | NUR ---
SCRAP CUTTER CLOSING NOTE PATIENT TOLERATING CURRENT VENT SETTINGS. ALL DUE MEDS GIVEN. KEPT CLEAN AND DRY. TOLERATING GTF. F/C IN PLACE, FLEXISEAL IN PLACE. TURNED AND REPOSITIONED Q2 AND PRN. SIDE RAILS UP AND LOCKED. BED KEPT AT LOWEST POSITION. CONTINUITY OF CARE ENDORSED TO PM NURSE.
[2019-11-13] MEDS: ATORVASTATIN 40 MG TABLET PO SCH (22:23)
[2019-11-14] VITALS (63 sets, daily range): BP systolic 73–149; BP diastolic 34–65
--- NOTE | 2019-11-14 00:05 | NUR ---
SECURITY INSPECTOR NOTE INCREASED LEVOPHED ORDERED TO KEEP SBP >90. Addendum: 11/15/19 at 0618 by LILIA PETERSON RN WRONG DATE
--- NOTE | 2019-11-14 01:15 | NUR ---
VENEER STAPLER NOTE PER RT, PATIENT'S FIO2 WAS INCREASED TO 75% TO KEEP O2 SAT ABOVE 94%. O2 SAT IS 95% AT THIS TIME. WILL CONTINUE TO MONITOR.
[2019-11-14 04:03] LABS: BASOPHILS # (AUTO) 0.1 /CMM (0.0-0.2); BASOPHILS % (AUTO) 0.3 % (0.0-2.0); EOSINOPHILS % (AUTO) 0.3 % (0.0-6.0); HEMATOCRIT 31 % (39-51); HEMOGLOBIN 10.1 g/dL (13.5-17.5); LYMPHOCYTES # (AUTO) 0.6 /CMM (0.8-4.8); LYMPHOCYTES % (AUTO) 3.3 % (20.0-44.0); MEAN CORPUSCULAR HGB CONC 32 g/dl (31.0-36.0); MEAN CORPUSCULAR VOLUME 89 fL (80-96); MONOCYTES # (AUTO) 0.6 /CMM (0.1-1.30); MONOCYTES % (AUTO) 3.6 % (2.0-12.0); NEUTROPHILS # (AUTO) 15.7 /CMM (1.8-8.9); NEUTROPHILS % (AUTO) 92.5 % (43.0-81.0); PLATELET COUNT (AUTO) 117 /CMM (150-450); RED BLOOD CELL COUNT(AUTO) 3.49 MIL/uL (4.5-6.0); WHITE BLOOD COUNT (AUTO) 16.9 K/uL (4.3-11.0)
[2019-11-14 04:15] LABS: ALANINE AMINOTRANSFERASE 926 U/L (12-78); ALKALINE PHOSPHATASE 668 U/L (46-116); BILIRUBIN,TOTAL 1.5 mg/dL (0.2-1.0); CALCIUM, SERUM 6.4 mg/dL (8.5-10.1); CARBON DIOXIDE 20 mmol/L (21-32); CHLORIDE 104 mmol/L (98-107); CREATININE 4.3 mg/dL (0.6-1.3); GLUCOSE 296 mg/dL (74-106); MAGNESIUM 2.1 mg/dL (1.8-2.4); PHOSPHORUS 3.4 mg/dL (2.5-4.9); SODIUM SERUM 142 mmol/L (136-145); TOTAL PROTEIN, SERUM 5.6 g/dL (6.4-8.2)
[2019-11-14 04:32] LABS: POTASSIUM 2.5 mmol/L (3.5-5.1)
[2019-11-14 04:33] LABS: ALBUMIN 1.3 g/dL (3.4-5.0); UREA NITROGEN, BLOOD 96 mg/dL (7-18)
[2019-11-14 04:35] LABS: ASPARTATE AMINOTRANSFERASE 4323 U/L (15-37)
--- NOTE | 2019-11-14 05:45 | NUR ---
COST ESTIMATING CLERK NOTE PER RT, INCREASED FIO2 TO 95% TO KEEP O2 SAT > 94% ORDERED. O2 SAT IS 96% AT THIS TIME.
[2019-11-14] MEDS: BLOOD SUGAR DIAGNOSTIC 1 EACH STRIP IN SCH ×4 (05:47→23:26)
[2019-11-14] MEDS: INSULIN REGULAR, HUMAN 100 UNIT/ML 3 ML VIAL SQ PRN ×4 (05:49→23:28)
--- NOTE | 2019-11-14 06:00 | NUR ---
HYDROGENATION OPERATOR NOTE CALLED ON-CALL PHONE NUMBER FOR DR. BHANDARI REGARDING PATIENT'S CRITICAL LAB VALUES: POTASSIUM: 2.5 BUN: 96 ALBUMIN 1.3 SORTER LUMBER STRAIGHTENER ADAM WEAVER MADE AWARE. RECEIVED NEW ORDER FOR KCL 40 MEQ VIA GT NOW AND NOTIFY CLINICAL DIETETIC TECHNICIAN. ORDERS NOTED AND CARRIED OUT. WILL ENDORSE TO AM SHIFT RN FOR CONTINUATION OF CARE.
--- NOTE | 2019-11-14 06:55 | NUR ---
DIRECTOR CHECK NOTE PATIENT IS STILL IN BED RESTING WITH HOB ELEVATED. ALL DUE MEDS GIVEN AND TOLERATED WELL. KCL 40 MEQ GIVEN VIA GT ORDERED. PATIENT IS KEPT CLEAN, DRY, AND COMFORTABLE. PATIENT WAS INCREASED TO 95% FIO2 PER RT. REPOSITIONED Q2H. IN NO APPARENT DISTRESS NOTED AT THIS TIME. WILL ENDORSE TO AM SHIFT RN FOR CONTINUATION OF CARE.
[2019-11-14] MEDS ORDERED: POTASSIUM CHLORIDE 20 MEQ POWDER PACKET GT SCH ×2 (07:00)
[2019-11-14 07:54] LABS: ABG BASE EXCESS -8.8 mmol/L; ABG OXYGEN SATURATION 94.4 % (92.0-98.5); ABG PH 7.331 (7.350-7.450); ABG PO2 82.7 mmHg (75.0-100.0); AaDO2 563.3 mmHg; COHb 0.3 % (0.5-1.5); MetHb 0.3 % (0.0-1.5); O2Hb 93.8 % (94.0-97.0); SITE, ABG Right Radial; VENT MODE, BG AC 12 550 95%
[2019-11-14] MEDS: CLOPIDOGREL BISULFATE 75 MG TABLET PO SCH (09:00)
--- NOTE | 2019-11-14 09:04 | NUR ---
PLASTIC PRESS MOLDER NOTE SEEN AND EXAMINED BY DR HARPER, WITH ORDERS TO START PATIENT ON SEDATION PROPOFOL TO GET HIS RESPIRATORY RATE CONTROLLED. NOTED. Addendum: 11/14/19 at 0958 by BROOKE NELSON RN TO GET RR CONTROLLED TO 22
[2019-11-14] MEDS: CITRIC ACID/SODIUM CITRATE (BICITRA)15 ML UDC NG SCH ×4 (09:05→21:04)
[2019-11-14] MEDS: HYDROCORTISONE SOD SUCCINATE 100 MG/2 ML VIAL IV SCH ×2 (09:06→21:05)
[2019-11-14] MEDS: PANTOPRAZOLE 40 MG VIAL IV SCH (09:06)
[2019-11-14] MEDS: INSULIN GLARGINE, 100 UNIT/ML CARTRIDGE SQ SCH ×2 (09:08→21:06)
--- NOTE | 2019-11-14 09:14 | NUR ---
SCHOOL TRAFFIC SUPERVISOR NOTE SPOKE WITH DR BHANDARI IN REGARDS TO PLAVIS, PER MD DISCONTINUE MEDICATION. PATIENT SEEN BY DR BHANDARI VIA FACETIME. ORDERS RECEIVED TO INCREASE LANTUS TO 12 UNITS Q12. INFORMED REGARDING SIGNING POLST, PER MD HE WILL NOT SIGN POLST UNTIL SHOW PAPER WORK FOR DPOA.
--- NOTE | 2019-11-14 09:30 | NUR ---
SWITCH MAKER NOTE SEEN AND EXAMINED BY DR SIMPSON. PER PENDING HD CATHETER PLACEMENT BY DR NEVES. PER DR CRAWFORD HE SPOKE WITH EX AND OBTAINED CONSENT FOR HD CATHETER AND DIALYSIS. PENDING DIALYSIS CATHETER PLACEMENT AT THIS TIME.
[2019-11-14] MEDS: PROPOFOL 100 ML IV PRN ×5 (09:37→21:24)
[2019-11-14] MEDS ORDERED: POTASSIUM CHLORIDE 20 MEQ POWDER PACKET GT ONE ×2 (10:00→12:00)
[2019-11-14] MEDS: NOREPINEPHRINE 8 MG in IV NS 0.9% 242 ML IV PRN (11:02)
--- NOTE | 2019-11-14 11:25 | NUR ---
INNERSOLE MAKER NOTE DR NEVES AT BEDSIDE, PLACING HD CATH
--- NOTE | 2019-11-14 11:54 | NUR ---
VIDEO PRESENTATION OPERATOR NOTE S/P RIGHT FEM HD CATH PLACEMENT, DIALYSIS NURSE ON STANDBY WILL DIALYZE PATIENT TODAY.
[2019-11-14] MEDS: Z GUARD REMEDY 2 OZ OINT TP SCH (11:58)
--- NOTE | 2019-11-14 13:44 | NUR ---
MILITARY SOURCE OPERATIONS SPECIALIST NOTE PATIENT S/P DIALYSIS WITH 1LITER TAKEN OUT.
[2019-11-14] MEDS: CEFEPIME 2 GM in IV D5W 100 ML IV SCH (14:23)
--- NOTE | 2019-11-14 19:05 | NUR ---
PRODUCT SAFETY ASSOCIATE NOTE RECEIVED PATIENT IN BED RESTING WITH HOB ELEVATED. NON-VERBAL. DNR CODE STATUS. BREATHING IS EVEN AND NON-LABORED. NO SOB NOTED AT THIS TIME. PATIENT IS VENT DEPENDANT, ON 90% FIO2. ON ORAL GT FEEDING RUNNING AT 35 ML/HR. IV SITE ON BERNARDINO MIDLINE IS CLEAN, DRY, AND PATENT. IV HYDRATION 1/2 NS RUNNING AT 50 ML/HR. ON DIPRIVAN DRIP @ 70 MCS/KG/MIN AND LEVOPHED 0.03 MCS/KG/MIN. VITALS WNL AT THIS TIME. PATIENT ON RECTAL TUBE. STOOL IS BROWN AND LIQUID IN CONSISTENCY. ON VASQUEZ CATH, URINE IS CLEAR AND YELLOW IN COLOR WITH MINIMAL SEDIMENTS NOTED. IN NO APPARENT DISTRESS NOTED AT THIS TIME. WILL CONTINUE TO MONITOR.
--- NOTE | 2019-11-14 19:23 | NUR ---
SPIN TABLE OPERATOR CLOSING NOTE ALL DUE MEDS GIVEN. IN NO DISTRESS AT THIS TIME, TOLERATING CURRENT VENT SETTINGS. OGT PATENT, INTACT, TOLERATING GTF. F/C IN AND FLEXISEAL IN PLACE. DIPRIVAN RUNNING 70MCG/KG/MIN AND LEVO 0.03 MCG/KG/MIN. KEPT CLEAN AND DRY. TURNED AND REPOSITIONED Q2 AND PRN. HOB ELEVATED. SIDE RAILS UP AND LOCKED. CONTINUITY OF CARE ENDORSED TO PM NURSE.
[2019-11-14] MEDS: ATORVASTATIN 40 MG TABLET PO SCH (21:04)
[2019-11-14 22:33] LABS: CREATININE KINASE (CK),MB 20.2 ng/mL (0.0-10.4)
[2019-11-15] VITALS (70 sets, daily range): BP systolic 62–123; BP diastolic 35–67
--- NOTE | 2019-11-15 00:05 | NUR ---
MOLD FINISHER NOTE INCREASED LEVOPHED ORDERED TO KEEP SBP > 90.
[2019-11-15] MEDS: PROPOFOL 100 ML IV PRN ×4 (00:40→09:38)
[2019-11-15] MEDS: NEPRO 1,000 ML BOTTLE GT PRN (02:14)
--- NOTE | 2019-11-15 03:00 | NUR ---
PUBLIC HEALTH TEACHER NOTE PATIENT TOLERATED BED BATH WELL AT THIS TIME. ALL WOUND CARE RENDERED. WILL CONTINUE TO MONITOR.
[2019-11-15 04:15] LABS: CARBON DIOXIDE 22 mmol/L (21-32); CHLORIDE 106 mmol/L (98-107); CREATININE 3.6 mg/dL (0.6-1.3); GLUCOSE 323 mg/dL (74-106); POTASSIUM 3.1 mmol/L (3.5-5.1); SODIUM SERUM 144 mmol/L (136-145); UREA NITROGEN, BLOOD 74 mg/dL (7-18)
[2019-11-15 04:17] LABS: CALCIUM, SERUM 5.1 mg/dL (8.5-10.1)
[2019-11-15] MEDS: BLOOD SUGAR DIAGNOSTIC 1 EACH STRIP IN SCH ×2 (05:37→11:55)
[2019-11-15] MEDS: INSULIN REGULAR, HUMAN 100 UNIT/ML 3 ML VIAL SQ PRN ×2 (05:39→11:55)
[2019-11-15] MEDS: NOREPINEPHRINE 8 MG in IV NS 0.9% 242 ML IV PRN (06:31)
--- NOTE | 2019-11-15 06:48 | NUR ---
TOP TAPER MACHINE NOTE PATIENT KEPT SEDATED THROUGHOUT THE NIGHT. LEVOPHED DRIP TITRATED ORDERED. ALL DUE MEDS GIVEN AND TOLERATED WELL. REPOSITIONED Q2H. RECEIVED CRITICAL LAB VALUE OF CALCIUM 5.1 (TRENDING DOWN). LEFT MESSAGE TO DR. BHANDARI, STILL NO NEW ORDERS AT THIS TIME. WILL ENDORSE TO AM SHIFT RN.
[2019-11-15] MEDS: INSULIN GLARGINE, 100 UNIT/ML CARTRIDGE SQ SCH (07:32)
--- NOTE | 2019-11-15 07:39 | NUR ---
REFRIGERATION PLANT OPERATOR: pt is deeply sedated with 70 mcg/kg/m Diprivan, no cough reflex now, no pain stimuli reaction, RR 29-30, O2sat. over 95%, SBP 69-85, SR, increased Levophed from 0.7 to 0.8-1.0 mcg/kg/m, called pharnacy to get Smith gtt, decreased Diprivan to 60 mcg/kg/m, GTF residual WNL, flexiseal patent, HD done yesterday, F/c urine out 50ml over nigh, by CONI Torres report: DNR status, waiting copy of DPOA package, continue all meds per ex-/DPOA request charge nurse said
[2019-11-15 07:48] LABS: ABG OXYGEN SATURATION 94.8 % (92.0-98.5); ABG PCO2 35.6 mmHg (35.0-45.0); ABG PH 7.309 (7.350-7.450); COHb 0.3 % (0.5-1.5); MetHb 0.3 % (0.0-1.5); O2Hb 94.2 % (94.0-97.0); SITE, ABG Right Radial; VENT MODE, BG AC 22 600 80% +8
[2019-11-15] MEDS: PANTOPRAZOLE 40 MG VIAL IV SCH (08:14)
[2019-11-15] MEDS: CITRIC ACID/SODIUM CITRATE (BICITRA)15 ML UDC NG SCH (08:14)
[2019-11-15] MEDS: PHENYLEPHRINE 100 MG in IV NS 0.9% 240 ML IV PRN (08:14)
[2019-11-15] MEDS: HYDROCORTISONE SOD SUCCINATE 100 MG/2 ML VIAL IV SCH (08:14)
--- NOTE | 2019-11-15 08:20 | NUR ---
PUBLIC SERVICE ADMINISTRATOR: pt was comatose before intubation/sedation by report/charge nurse confirmed, pt is slightly laboring with breathing chest activity, suctioned well, RR 32-34 with vent setting rate 22, will increase sedation gradually/BP monitoring
--- NOTE | 2019-11-15 08:30 | NUR ---
MINERAL RESOURCES INSPECTOR: started Smith gtt, updated with all above, pt.current status, neuro status, ABG, said: keep pt sedated well for respvent well support with pressor support/titration
[2019-11-15] MEDS: Z GUARD REMEDY 2 OZ OINT TP SCH (09:03)
--- NOTE | 2019-11-15 09:45 | NUR ---
KINDERGARTNERS HELPER: SBP is over 100 now, continue titrate pressor, SR, O2sat.94-100%, RR 30-33 now, vent setting: AC 22/Tv600/80%fiO2/peep8, increased sedation f/u note to keep comfortable with vent support, still no urine out
--- NOTE | 2019-11-15 11:30 | NUR ---
USER ACCEPTANCE TESTER: SBP 70-90, changed BP cuff positions, SR/ST max 110, increased Levophed gtt, restart Smith gtt, O2sat.unable to get pulse/oxym monitoring, [id number]/or 90-100%, RR 27-30, applied 2 new sensors, called RT to check ETT position/ETT cuff pressure, suctioned well
[2019-11-15] MEDS ORDERED: NOREPINEPHRINE 32 MG in IV NS 0.9% 218 ML IV PRN (12:00)
--- NOTE | 2019-11-15 12:00 | NUR ---
TOUR BUS DRIVER/GUIDE: max of Levophed gtt rate now, will increase Smith-synephrine gtt rate to max, SBP 80-90 now, SR/ST max 105, O2sat. 89-92%
--- NOTE | 2019-11-15 12:23 | NUR ---
ASPHALT DISTRIBUTOR OPERATOR: max of Levo, Smith gtts rate now, pt became to SB 50/40/30, DNR status
--- NOTE | 2019-11-15 12:25 | NUR ---
RANGE AID: isoline on monitor, pulseless/no pulse palpation, no pupils reaction/fixed, no reflexes, no breathing activity with vent off, is in unit/room/pronounced pt
--- NOTE | 2019-11-15 12:40 | NUR ---
LIVE TRUCK OPERATOR: message to was sent, spoke with [employer]/after report got case#/approved to release body, pt. ex- notified/agree to send body to [facility], pest control supervisor notified
== END 2019-11-15 14:50 | disposition expired | DRG 720 ==
LOC: ER 13:21 → TELE1 15:08 → TELE-TD 15:57 → ICU 11-09 16:45
PROVIDERS: ADMIT Internal Medicine; ATTEND Internal Medicine
PROC: 0BH17EZ Insertion of Endotracheal Airway into Trachea, Via Natural or Artificial Opening (ICD-10-PCS; principal; 2019-11-09)
PROC: 05HY33Z Insertion of Infusion Device into Upper Vein, Percutaneous Approach (ICD-10-PCS; principal; 2019-11-09)
PROC: 5A1955Z Respiratory Ventilation, Greater than 96 Consecutive Hours (ICD-10-PCS; principal; 2019-11-09)
PROC: 5A1D70Z Performance of Urinary Filtration, Intermittent, Less than 6 Hours Per Day (ICD-10-PCS; 2019-11-14)
PROC: 06HM33Z Insertion of Infusion Device into Right Femoral Vein, Percutaneous Approach (ICD-10-PCS; 2019-11-15)
PROC: B54BZZA Ultrasonography of Right Lower Extremity Veins, Guidance (ICD-10-PCS; 2019-11-15)
DX: A41.9 Sepsis, unspecified organism (principal); J96.01 Acute respiratory failure with hypoxia; N17.0 Acute kidney failure with tubular necrosis; K72.00 Acute and subacute hepatic failure without coma; R65.21 Severe sepsis with septic shock; G92 Toxic encephalopathy; J15.9 Unspecified bacterial pneumonia; E46 Unspecified protein-calorie malnutrition; L89.156 Pressure-induced deep tissue damage of sacral region; E11.22 Type 2 diabetes mellitus with diabetic chronic kidney disease; L89.326 Pressure-induced deep tissue damage of left buttock; D69.6 Thrombocytopenia, unspecified; L89.226 Pressure-induced deep tissue damage of left hip; L89.316 Pressure-induced deep tissue damage of right buttock; N40.0 Benign prostatic hyperplasia without lower urinary tract symptoms; E11.40 Type 2 diabetes mellitus with diabetic neuropathy, unspecified; F02.80 Dementia in other diseases classified elsewhere, unspecified severity, without behavioral disturbance, psychotic disturbance, mood disturbance, and anxiety; G20 Parkinson's disease; Z98.890 Other specified postprocedural states; Z66 Do not resuscitate; Z87.891 Personal history of nicotine dependence; K80.20 Calculus of gallbladder without cholecystitis without obstruction; Z79.01 Long term (current) use of anticoagulants; Z79.82 Long term (current) use of aspirin; Z79.899 Other long term (current) drug therapy; Z79.02 Long term (current) use of antithrombotics/antiplatelets; Z86.73 Personal history of transient ischemic attack (TIA), and cerebral infarction without residual deficits; Z80.52 Family history of malignant neoplasm of bladder; I12.9 Hypertensive chronic kidney disease with stage 1 through stage 4 chronic kidney disease, or unspecified chronic kidney disease; N18.9 Chronic kidney disease, unspecified; F09 Unspecified mental disorder due to known physiological condition; Z68.23 Body mass index [BMI] 23.0-23.9, adult; E87.0 Hyperosmolality and hypernatremia; D64.9 Anemia, unspecified; E83.51 Hypocalcemia; E87.2 Acidosis; E87.5 Hyperkalemia; F10.21 Alcohol dependence, in remission
CPT/HCPCS: 31720; 36415; 36600; 71045-TC; 76705-TC; 76770-TC; 80048-TC; 80053-TC; 80202-TC; 81000-TC; 82247-TC; 82248-TC; 82272-TC; 82550-TC; 82553; 82570-TC; 82728-TC; 82803-TC; 82962-TC; 83540-TC; 83605-TC; 83615-TC; 83735-TC; 83880; 83970; 84100-TC; 84155-TC; 84300-TC; 84484-TC; 85025-TC; 85378-TC; 85385-TC; 85730-TC; 86140-TC; 86706; 87040-TC; 87081-TC; 87086-TC; 87340; 90935-TC; 94002-TC; 94003-TC; 94799-TC; A4216; A6253; C1750; C1751; C9113; G0378; J0330; J0692; J0696; J1650; J1720; J1815; J2370; J3370; J3490; J7030; J7040; J7050; J7060; J7070; U0003-CS